=== PATIENT | male | born 1960 | race American Indian/Alaskan Native ===

== ENCOUNTER 2017-06-05 11:37 | Inpatient (IN) | payer MEDICAID ==
[2017-06-05 12:50] LABS: Basophils % (Auto) 0.3 % (0.0-1.8); Eosinophils % (Auto) 0.1 % (0.0-4.3); Hematocrit 36.1 % (35.5-45.6); Lymphocytes # (Auto) 1.1 K/mm3 (1.2-5.4); Lymphocytes % (Auto) 7.1 % (13.4-35.0); Mean Corpuscular HGB Conc 33 % (32-34); Mean Corpuscular Hemoglobin 29 pg (28-32); Mean Corpuscular Volume 88 fl (84-94); Monocytes # (Auto) 1.6 K/mm3 (0.0-0.8); Monocytes % (Auto) 10.4 % (0.0-7.3); Platelet Count 244 K/mm3 (140-440); Red Blood Count 4.13 M/mm3 (3.65-5.03); Red Cell Distribution Width 14.5 % (13.2-15.2)
[2017-06-05 13:07] LABS: Calcium 8.7 mg/dL (8.4-10.2)
--- NOTE | 2017-06-05 20:12 | Emergency Department Report ---
HPI - General Chief Complaint: Upper Respiratory Infection Time Seen by Provider: 06/05/17 20:05 - HPI HPI: This is a 56-year-old demented male presents to the emergency department from the PCP office where he saw nurse practitioner David Kent and was sent to [facility] for the diagnosis of pneumonia. The patient says that he has been having a productive cough going on for about a week or so. He has generalized bodyaches as well as his right-sided rib or chest discomfort. Patient presents with a low-grade fever here but otherwise denies any recent fever. He has a past medical history of diabetes, hypertension and hepatitis C. He did not take anything and was not given anything for his symptoms from presentation. No recent travel or sick contacts. ED Past Medical Hx - Past Medical History Previous Medical History?: Yes Hx Hypertension: Yes Hx Heart Attack/AMI: No Hx Congestive Heart Failure: No Hx Diabetes: Yes Hx Deep Vein Thrombosis: No Hx Pulmonary Embolism: No Hx Liver Disease: No Hx Renal Disease: No Hx Sickle Cell Disease: No Hx Arthritis: No Hx Seizures: No Hx Kidney Stones: No Hx Asthma: Yes Hx COPD: No Hx Tuberculosis: No Hx Dementia: No Hx HIV: No Additional medical history: Hep C. Anal condyloma - Surgical History Past Surgical History?: No Hx Coronary Stent: No Hx Open Heart Surgery: No Hx Pacemaker: No Hx Internal Defibrillator: No Hx Cholecystectomy: No Hx Appendectomy: No Hx Breast Surgery: No - Social History Smoking Status: Former Smoker Substance Use Type: Prescribed - Medications Home Medications: Home Medications Medication Instructions Recorded Confirmed Last Taken Type Albuterol Sulfate [Ventolin HFA] 2 puff IH Q4H PRN 10/16/15 11/03/15 Unknown History Gabapentin [Neurontin] 300 mg PO BID 10/16/15 11/03/15 Unknown History Aspirin [Aspirin BABY CHEW TAB] 81 mg PO QDAY #30 tab.chew 11/22/15 Unknown Rx AtorvaSTATin [Lipitor] 10 mg PO QHS #30 tablet 11/22/15 Unknown Rx Carvedilol [Coreg] 6.25 mg PO BID #60 tablet 11/22/15 Unknown Rx Famotidine [Pepcid] 20 mg PO BID #60 tablet 11/22/15 Unknown Rx Folic Acid [Folvite] 1 mg PO QDAY #30 tablet 11/22/15 Unknown Rx Multivitamin Tab [Multiple Vitamin 1 each PO QDAY #30 tablet 11/22/15 Unknown Rx TAB (Theragran)] Thiamine [Vitamin B-1] 100 mg PO QDAY #30 tablet 11/22/15 Unknown Rx ED Review of Systems ROS: Stated complaint: PNEUMONIA Other details as noted in HPI Constitutional: fever. denies: weakness Eyes: denies: eye pain, eye discharge, vision change ENT: denies: ear pain, throat pain Respiratory: cough. denies: wheezing Cardiovascular: chest pain. denies: palpitations Gastrointestinal: denies: abdominal pain, nausea, diarrhea Genitourinary: denies: urgency, dysuria Musculoskeletal: myalgia. denies: joint swelling Skin: denies: rash, lesions Neurological: denies: headache, weakness, paresthesias Physical Exam - Physical Exam Vital Signs: Vital Signs 06/05/17 11:41 Temperature 99.7 F H Pulse Rate 111 H Respiratory 22 Rate Blood Pressure 142/83 O2 Sat by Pulse 97 Oximetry Physical Exam: GENERAL: The patient is well-developed well-nourished. HENT: Normocephalic. Atraumatic. Patient has moist mucous membranes. EYES: Extraocular motions are intact. Pupils equal reactive to light bilaterally. NECK: Supple. Trachea is midline. CHEST/LUNGS: Coarse breath sounds on the right. There is some mild rhonchi heard. Mild tachypnea but no accessory muscle use. There is no respiratory distress noted. HEART/CARDIOVASCULAR: Regular. There is mild tachycardia. There is no murmur. ABDOMEN: Abdomen is soft, nontender. Patient has normal bowel sounds. There is no abdominal distention. SKIN: Skin is warm and dry. NEURO: The patient is awake, alert. The patient is cooperative. The patient has no focal neurologic deficits. The patient has normal speech. MUSCULOSKELETAL: There is no tenderness or deformity. There is no evidence of acute injury. ED Course Vital Signs 06/05/17 11:41 Temperature 99.7 F H Pulse Rate 111 H Respiratory 22 Rate Blood Pressure 142/83 O2 Sat by Pulse 97 Oximetry ED Medical Decision Making - Lab Data Result diagrams: 06/05/17 12:33 06/05/17 12:33 - EKG Data -: EKG Interpreted by Ak EKG shows normal: sinus rhythm, axis, intervals, QRS complexes, ST-T waves Rate: tachycardia (109 bpm) - EKG Data When compared to previous EKG there are: previous EKG unavailable Interpretation: normal EKG (sinus tach at 109 bpm) - Radiology Data Radiology results: report reviewed, image reviewed interpreted by me: Chest x-ray shows a large area of opacification towards the right lung. No pneumothorax. No significant cardiomegaly. PROCEDURE: CT ANGIO CHEST TECHNIQUE: Computerized tomographic angiography of the chest was performed after the IV injection of iodinated nonionic contrast including image processing. The image data was postprocessed using 2-dimensional multiplanar reformatted (MPR) and 3-dimensional (MIP and/or volume rendered) techniques. HISTORY: cp, elevated dimer COMPARISON: No prior studies are available for comparison. FINDINGS: Bilateral pulmonary arteries and their branches demonstrate normal opacification without filling defects. Aorta is of normal caliber without evidence of dissection. A large right pleural effusion is noted with complete collapse of right middle and lower lobes. Upper lobe demonstrates a few infiltrates. The right pleural effusion appears to contain multiple loculations. In the midportion. Left upper lobe demonstrates a irregular scarring in the midportion with the bullous/cavitary changes. Left lower lobe is unremarkable. 1.2 centimeter lymph node is noted in the sub-carinal region. IMPRESSION: No evidence of pulmonary embolism. Large loculated right pleural effusion. Small infiltrates right upper lobe Mild degree subcarinal lymphadenopathy. Irregular scarring with the cavitary/bullous changes left upper lobe. Transcribed By: [facility] Dictated By: MELVIN JUAREZ Electronically Authenticated By: MELVIN JUAREZ Signed Date/Time: 06/05/171908 - Medical Decision Making Patient was present by his primary care office for suspected right-sided pneumonia. However the patient had a CT angiography, secondary to an elevated d -dimer, but shows a right sided large pleural effusion. There is also some right upper lobe infiltrate and some abnormal left upper lobe scarring and/or bulla. Patient was started on antibiotics. Labs do show a leukocytosis of about 15,000. First troponin elevated at 0.041. EKG did not show ST elevation ME. He'll be admitted to hospital for further evaluation and treatment and has been accepted for admission by the hospitalist, Dr. Cadena. - Differential Diagnosis pneumonia, CHF, ME, PE, URI Critical Care Time: No Critical care attestation.: If time is entered above; I have spent that time in minutes in the direct care of this critically ill patient, excluding procedure time. ED Disposition Clinical Impression: Pleural effusion on right, Elevated troponin Pneumonia Qualifiers: Pneumonia type: due to unspecified organism Laterality: right Lung location: unspecified part of lung Qualified Code(s): J18.9 - Pneumonia, unspecified organism Disposition: OP ADMIT IP TO THIS HOSP Is pt being admited?: Yes Condition: Fair Instructions: Bacterial Pneumonia (ED) Referrals: PRIMARY CARE, [Primary Care Provider] - 3-5 Days Time of Disposition: 00:34
[2017-06-05 21:02] LABS: Chol/HDL Ratio 2.23 %
[2017-06-05] MEDS ORDERED: BABY ASPIRIN PO ONE (21:11)
[2017-06-05 21:28] LABS: INR 1.34 (0.87-1.13)
--- NOTE | 2017-06-05 21:33 | XRay Report ---
FINAL REPORT PROCEDURE: XR CHEST ROUTINE 2V TECHNIQUE: PA and lateral chest radiographs were obtained. CPT 62940 HISTORY: cough, rib pain COMPARISON: 10/16/2015 FINDINGS: Heart: Normal. Mediastinum/Vessels: Normal. Lungs/Pleural space: Moderate to large right pleural effusion is noted obscuring the underlying right lung. Left lung and left pleural space are clear.. Bony thorax: No acute osseous abnormality. Other: IMPRESSION: Moderate to large right pleural effusion..
[2017-06-05] MEDS ORDERED: NACL 0.9% 250ML 250 ML IV ONE (21:48)
--- NOTE | 2017-06-05 23:12 | Cat Scan Report ---
FINAL REPORT PROCEDURE: CT ANGIO CHEST TECHNIQUE: Computerized tomographic angiography of the chest was performed after the IV injection of iodinated nonionic contrast including image processing. The image data was postprocessed using 2-dimensional multiplanar reformatted (MPR) and 3-dimensional (MIP and/or volume rendered) techniques. HISTORY: cp, elevated dimer COMPARISON: No prior studies are available for comparison. FINDINGS: Bilateral pulmonary arteries and their branches demonstrate normal opacification without filling defects. Aorta is of normal caliber without evidence of dissection. A large right pleural effusion is noted with complete collapse of right middle and lower lobes. Upper lobe demonstrates a few infiltrates. The right pleural effusion appears to contain multiple loculations. In the midportion. Left upper lobe demonstrates a irregular scarring in the midportion with the bullous/cavitary changes. Left lower lobe is unremarkable. 1.2 centimeter lymph node is noted in the sub-carinal region. IMPRESSION: No evidence of pulmonary embolism. Large loculated right pleural effusion. Small infiltrates right upper lobe Mild degree subcarinal lymphadenopathy. Irregular scarring with the cavitary/bullous changes left upper lobe.
[2017-06-05] MEDS ORDERED: LEVAQUIN 750MG/150ML 750 MG/150 ML BAG IV ONE (23:22)
--- NOTE | 2017-06-05 23:34 | History and Physical Report ---
History of Present Illness Date of examination: 06/05/17 History of present illness: 56-year-old man with a history of hepatitis C, hypertension, diabetes and dementia was brought to the emergency room for evaluation of right rib pain, fever, cough productive of green phlegm Review Of Systems: Constitutional: no weight loss Ears, eyes, nose, mouth and throat: no nasal congestion, no nasal discharge, no sinus pressure, blurry vision, diplopia Neck: No neck pain or rigidity. Cardiovascular: No chest pain, palpitations Respiratory: No shortness of breath Gastrointestinal: No abdominal pain, hematochezia Genitourinary : no dysuria, frequency , hematuria Musculoskeletal: no muscle ache Integumentary: no rash, no pruritis Neurological: no parathesias, focal weakness Endocrine: no cold or heat intolerance, no polyuria or polydipsia Hematologic/Lymphatic: no easy bruising, no easy bleeding, no gland swelling Allergic/Immunologic: no urticaria, no angioedema. PAST MEDICAL HISTORY:hepatitis C, hypertension, diabetes and dementia PAST SURGICAL HISTORY: None FAMILY HISTORY: hypertension SOCIAL HISTORY: Denies alcohol, tobacco, drug Medications and Allergies Allergies Allergy/AdvReac Type Severity Reaction Status Date / Time No Known Allergies Allergy Verified 02/11/14 04:07 Home Medications Medication Instructions Recorded Confirmed Last Taken Type Albuterol Sulfate [Ventolin HFA] 2 puff IH Q4H PRN 10/16/15 11/03/15 Unknown History Gabapentin [Neurontin] 300 mg PO BID 10/16/15 11/03/15 Unknown History Aspirin [Aspirin BABY CHEW TAB] 81 mg PO QDAY #30 tab.chew 11/22/15 Unknown Rx AtorvaSTATin [Lipitor] 10 mg PO QHS #30 tablet 11/22/15 Unknown Rx Carvedilol [Coreg] 6.25 mg PO BID #60 tablet 11/22/15 Unknown Rx Famotidine [Pepcid] 20 mg PO BID #60 tablet 11/22/15 Unknown Rx Folic Acid [Folvite] 1 mg PO QDAY #30 tablet 11/22/15 Unknown Rx Multivitamin Tab [Multiple Vitamin 1 each PO QDAY #30 tablet 11/22/15 Unknown Rx TAB (Theragran)] Thiamine [Vitamin B-1] 100 mg PO QDAY #30 tablet 11/22/15 Unknown Rx Active Meds: Active Medications Levofloxacin/Dextrose (Levaquin 750mg/150ml) 750 mg in 150 mls @ 100 mls/hr IV ONCE ONE Stop: 06/06/17 00:51 Exam - Physical Exam Narrative exam: Gen. appearance: Patient lying in bed in no acute distress HEENT: Normocephalic/atraumatic, pupils equal round reactive to light, extra occular movement intact, no scleral icterus, no JVD or thyromegaly or nodule, neck is supple, mucous membrane moist, no erythema or exudate Heart: S1-S2, regular rate and rhythm Lungs: Decreased breath sound in the right base breathing comfortable Abdomen: Positive bowel sounds, nontender, nondistended, no organomegaly Extremities: No edema, cyanosis, clubbing Neuro:: Oriented 3 , cranial nerves II-12 intact, speech, motor intact Skin: No rash, nodules, warm dry - Constitutional Vitals: Temp Pulse Resp BP Pulse Ox 98.8 F 111 H 25 H 142/83 96 06/05/17 20:14 06/05/17 11:41 06/05/17 20:14 06/05/17 11:41 06/05/17 20:14 Results - Labs CBC & Chem 7: 06/05/17 12:33 06/05/17 12:33 Labs: Abnormal lab results 06/05/17 06/05/17 06/05/17 Range/Units 12:33 12:33 20:10 WBC 15.8 H (4.5-11.0) K/mm3 Lymph % (Auto) 7.1 L (13.4-35.0) % [place] % (Auto) 10.4 H (0.0-7.3) % Lymph # 1.1 L (1.2-5.4) K/mm3 [place] # 1.6 H (0.0-0.8) K/mm3 Seg Neutrophils % 82.1 H (40.0-70.0) % Seg Neutrophils # 12.9 H (1.8-7.7) K/mm3 PT (12.2-14.9) Sec. INR (0.87-1.13) D-Dimer (0-234) ng/mlDDU Sodium 134 L (137-145) mmol/L Carbon Dioxide 21 L (22-30) mmol/L BUN 21 H (9-20) mg/dL Glucose 133 H (75-100) mg/dL Troponin T 0.041 H (0.00-0.029) ng/mL LDL Cholesterol Direct 42 L (50-130) mg/dL 06/05/17 Range/Units 20:58 WBC (4.5-11.0) K/mm3 Lymph % (Auto) (13.4-35.0) % [place] % (Auto) (0.0-7.3) % Lymph # (1.2-5.4) K/mm3 [place] # (0.0-0.8) K/mm3 Seg Neutrophils % (40.0-70.0) % Seg Neutrophils # (1.8-7.7) K/mm3 PT 17.3 H (12.2-14.9) Sec. INR 1.34 H (0.87-1.13) D-Dimer 2377.87 H (0-234) ng/mlDDU Sodium (137-145) mmol/L Carbon Dioxide (22-30) mmol/L BUN (9-20) mg/dL Glucose (75-100) mg/dL Troponin T (0.00-0.029) ng/mL LDL Cholesterol Direct (50-130) mg/dL - Imaging and Cardiology EKG: image reviewed Chest x-ray: image reviewed CT scan - chest: report reviewed Assessment and Plan Assessment Sepsis Community-acquired pneumonia Large loculated pleural effusion Hypertension Diabetes Dementia Plan Admit to medicine Start IV antibiotics, consult pulmonary Follow cultures, check fingersticks initiate insulin sliding scale Continue appropriate outpatient medications DVT prophylaxis
[2017-06-06] MEDS ORDERED: MILK OF MAGNESIA PO PRN (01:31)
[2017-06-06] MEDS ORDERED: DULCOLAX PR PRN (01:31)
[2017-06-06] MEDS ORDERED: ZOFRAN IV PRN (01:31)
[2017-06-06] MEDS ORDERED: PROVENTIL IH PRN (01:31)
[2017-06-06] MEDS ORDERED: D50W (25GM) Syringe IV PRN (01:45)
[2017-06-06 04:43] LABS: Creatine Kinase MB 1.9 ng/mL (0.0-4.0)
[2017-06-06] MEDS: NOVOLOG SUB-Q SCH ×3 (08:00→22:45)
--- NOTE | 2017-06-06 09:06 | Progress Note ---
Assessment and Plan Assessment and plan: 56-year-old man with a history of hepatitis C, hypertension, diabetes and dementia was brought to the emergency room for evaluation of right rib pain, fever, cough productive of green phlegm Sepsis pneumonia ?aspiration Large loculated pleural effusion Chronically elevated Troponin Hypertension Diabetes Dementia Plan Start IV antibiotics, consult pulmonary Consult cardiology, ID IR to see if thoracentesis is possible, FLUID Studies. Follow cultures, check fingersticks initiate insulin sliding scale Continue appropriate outpatient medications DVT prophylaxis History Interval history: Patient seen and examined, in no acute distress at this time. Hospitalist Physical - Physical exam Narrative exam: VITAL SIGNS: Reviewed. GENERAL: The patient appeared well nourished and normally developed. Vital signs as documented. HEAD: No signs of head trauma. EYES: Pupils are equal. Extraocular motions intact. EARS: Hearing grossly intact. MOUTH: Oropharynx is normal. NECK: No adenopathy, no JVD. CHEST: Chest with Diminshed breath sounds bilaterally. No wheezes, rales, or rhonchi. CARDIAC: Regular rate and rhythm. S1 and S2, without murmurs, gallops, or rubs. VASCULAR: No Edema. Peripheral pulses normal and equal in all extremities. ABDOMEN: Soft, without detectable tenderness. No sign of distention. No rebound or guarding, and no masses palpated. Bowel Sounds normal. MUSCULOSKELETAL: Good range of motion of all major joints. Extremities without clubbing, cyanosis or edema. NEUROLOGIC EXAM: Alert and oriented x 3. No focal sensory or strength deficits. Speech normal. Follows commands. PSYCHIATRIC: Mood normal. SKIN: No rash or lesions. - Constitutional Vitals: Temp Pulse Resp BP Pulse Ox 98.5 F 106 H 18 154/78 96 06/06/17 08:29 06/06/17 08:29 06/06/17 08:29 06/06/17 08:29 06/06/17 08:29 Results - Labs CBC & Chem 7: 06/06/17 09:20 06/06/17 09:20 Labs: Laboratory Last Values WBC 15.8 K/mm3 (4.5-11.0) H 06/05/17 12:33 RBC 4.13 M/mm3 (3.65-5.03) 06/05/17 12:33 Hgb 12.0 gm/dl (11.8-15.2) 06/05/17 12:33 Hct 36.1 % (35.5-45.6) 06/05/17 12:33 MCV 88 fl (84-94) 06/05/17 12:33 MCH 29 pg (28-32) 06/05/17 12:33 MCHC 33 % (32-34) 06/05/17 12:33 RDW 14.5 % (13.2-15.2) 06/05/17 12:33 Plt Count 244 K/mm3 (140-440) 06/05/17 12:33 Lymph % (Auto) 7.1 % (13.4-35.0) L 06/05/17 12:33 [place] % (Auto) 10.4 % (0.0-7.3) H 06/05/17 12:33 Eos % (Auto) 0.1 % (0.0-4.3) 06/05/17 12:33 Baso % (Auto) 0.3 % (0.0-1.8) 06/05/17 12:33 Lymph # 1.1 K/mm3 (1.2-5.4) L 06/05/17 12:33 [place] # 1.6 K/mm3 (0.0-0.8) H 06/05/17 12:33 Eos # 0.0 K/mm3 (0.0-0.4) 06/05/17 12:33 Baso # 0.0 K/mm3 (0.0-0.1) 06/05/17 12:33 Seg Neutrophils % 82.1 % (40.0-70.0) H 06/05/17 12:33 Seg Neutrophils # 12.9 K/mm3 (1.8-7.7) H 06/05/17 12:33 PT 17.3 Sec. (12.2-14.9) H 06/05/17 20:58 INR 1.34 (0.87-1.13) H 06/05/17 20:58 APTT 35.0 Sec. (24.2-36.6) 06/05/17 20:58 D-Dimer 2377.87 ng/mlDDU (0-234) H 06/05/17 20:58 Sodium 134 mmol/L (137-145) L 06/05/17 12:33 Potassium 4.6 mmol/L (3.6-5.0) 06/05/17 12:33 Chloride 99.2 mmol/L (98-107) 06/05/17 12:33 Carbon Dioxide 21 mmol/L (22-30) L 06/05/17 12:33 Anion Gap 18 mmol/L 06/05/17 12:33 BUN 21 mg/dL (9-20) H 06/05/17 12:33 Creatinine 1.5 mg/dL (0.8-1.5) 06/05/17 12:33 Estimated GFR 59 ml/min 06/05/17 12:33 BUN/Creatinine Ratio 14 % 06/05/17 12:33 Glucose 133 mg/dL (75-100) H 06/05/17 12:33 POC Glucose 127 (70-105) H 06/06/17 02:23 Calcium 8.7 mg/dL (8.4-10.2) 06/05/17 12:33 Total Creatine Kinase 166 units/L (55-170) 06/06/17 03:19 CK-MB (CK-2) 1.9 ng/mL (0.0-4.0) 06/06/17 03:19 CK-MB (CK-2) Rel Index 1.1 (0-4) 06/06/17 03:19 Troponin T 0.031 ng/mL (0.00-0.029) H D 06/06/17 03:19 NT-Pro-B Natriuret Pep 464.0 pg/mL (0-900) 06/05/17 20:10 Triglycerides 80 mg/dL (2-149) 06/05/17 20:10 Cholesterol 105 mg/dL (50-199) 06/05/17 20:10 LDL Cholesterol Direct 42 mg/dL (50-130) L 06/05/17 20:10 HDL Cholesterol 47 mg/dL (40-59) 06/05/17 20:10 Cholesterol/HDL Ratio 2.23 % 06/05/17 20:10
[2017-06-06 09:39] LABS: Basophils % (Auto) 0.2 % (0.0-1.8); Hematocrit 32.6 % (35.5-45.6); Hemoglobin 10.6 gm/dl (11.8-15.2); Lymphocytes # (Auto) 0.8 K/mm3 (1.2-5.4); Lymphocytes % (Auto) 5.2 % (13.4-35.0); Mean Corpuscular HGB Conc 33 % (32-34); Mean Corpuscular Hemoglobin 28 pg (28-32); Mean Corpuscular Volume 86 fl (84-94); Monocytes # (Auto) 1.5 K/mm3 (0.0-0.8); Monocytes % (Auto) 9.8 % (0.0-7.3); Platelet Count 215 K/mm3 (140-440); Red Blood Count 3.77 M/mm3 (3.65-5.03); Red Cell Distribution Width 14.4 % (13.2-15.2)
[2017-06-06 09:59] LABS: Creatine Kinase MB 2.5 ng/mL (0.0-4.0)
[2017-06-06 10:02] LABS: BUN/Creatinine Ratio 18; Blood Urea Nitrogen 22 mg/dL (9-20); Calcium 8.3 mg/dL (8.4-10.2); Hemolysis Index 11
[2017-06-06] MEDS: NEURONTIN PO SCH ×2 (10:26→22:41)
[2017-06-06] MEDS: LOVENOX SUB-Q SCH ×2 (10:26→10:30)
[2017-06-06] MEDS: VITAMIN B-1 PO SCH (10:26)
[2017-06-06] MEDS: THERAGRAN Tab PO SCH (10:26)
[2017-06-06] MEDS: PEPCID PO SCH ×2 (10:26→22:41)
[2017-06-06] MEDS: FOLVITE PO SCH (10:26)
[2017-06-06] MEDS: COREG PO SCH ×2 (10:27→22:41)
[2017-06-06] MEDS: LEVAQUIN 750MG/150ML 750 MG/150 ML BAG IV SCH (10:28)
--- NOTE | 2017-06-06 12:07 | Consultation ---
History of Present Illness Consult date: 06/06/17 Consult reason: congestive heart failure History of present illness: This is a 56yr old male who was sent to this hospital from his primary care office for suspected pneumonia. A cardiac consultation was requested for CHF evaluation. Patient denies a prior cardiac history. Prior cardiac workup demonstrates normal myocardial thallium stress test and a normal left ventricular systolic function, EF 60-65%. A chest x-ray reports a large right pleural effusion. Chest CT reports a right pleural effusion, small right upper lobe infiltrates but no evidence of pulmonary embolus. Patient reports shortness of breath and coughs ongoing for several weeks. He denies lower extremity edema. Noted WBC of 15.8 and mildly febrile on initial workup in the emergency department. 12 lead ECG is a sinus tachycardia, no acute ischemic changes. Medications and Allergies Allergies Allergy/AdvReac Type Severity Reaction Status Date / Time No Known Allergies Allergy Verified 02/11/14 04:07 Home Medications Medication Instructions Recorded Confirmed Last Taken Type Albuterol Sulfate [Ventolin HFA] 2 puff IH Q4H PRN 10/16/15 11/03/15 Unknown History Gabapentin [Neurontin] 300 mg PO BID 10/16/15 11/03/15 Unknown History Aspirin [Aspirin BABY CHEW TAB] 81 mg PO QDAY #30 tab.chew 11/22/15 Unknown Rx AtorvaSTATin [Lipitor] 10 mg PO QHS #30 tablet 11/22/15 Unknown Rx Carvedilol [Coreg] 6.25 mg PO BID #60 tablet 11/22/15 Unknown Rx Famotidine [Pepcid] 20 mg PO BID #60 tablet 11/22/15 Unknown Rx Folic Acid [Folvite] 1 mg PO QDAY #30 tablet 11/22/15 Unknown Rx Multivitamin Tab [Multiple Vitamin 1 each PO QDAY #30 tablet 11/22/15 Unknown Rx TAB (Theragran)] Thiamine [Vitamin B-1] 100 mg PO QDAY #30 tablet 11/22/15 Unknown Rx Active Meds: Active Medications Acetaminophen (Tylenol) 650 mg PO Q4H PRN PRN Reason: Pain MILD(1-3)/Fever >100.5/SOLIMAN Albuterol (Proventil) 2.5 mg IH Q3HRT PRN PRN Reason: Shortness Of Breath Atorvastatin Calcium (Lipitor) 10 mg PO QHS BRUNILDA Bisacodyl (Dulcolax) 10 mg NC QDAY PRN PRN Reason: Constipation unrelieved by MOM Carvedilol (Coreg) 6.25 mg PO BID [facility] Last Admin: 06/06/17 10:27 Dose: 6.25 mg Dextrose (D50w (25gm) Syringe) 50 ml IV PRN PRN PRN Reason: Hypoglycemia Enoxaparin Sodium (Lovenox) 40 mg SUB-Q QDAY [facility] Last Admin: 06/06/17 10:30 Dose: Not Given Famotidine (Pepcid) 20 mg PO BID [facility] Last Admin: 06/06/17 10:26 Dose: 20 mg Folic Acid (Folvite) 1 mg PO QDAY [facility] Last Admin: 06/06/17 10:26 Dose: 1 mg Gabapentin (Neurontin) 300 mg PO BID [facility] Last Admin: 06/06/17 10:26 Dose: 300 mg Levofloxacin/Dextrose (Levaquin 750mg/150ml) 750 mg in 150 mls @ 100 mls/hr IV DAILY [facility] Last Admin: 06/06/17 10:28 Dose: 100 mls/hr Insulin Aspart (Novolog) 0 units SUB-Q ACHS [facility] PRN Reason: Protocol Last Admin: 06/06/17 08:00 Dose: 2 units Magnesium Hydroxide (Milk Of Magnesia) 30 ml PO Q4H PRN PRN Reason: Constipation Multivitamins (Theragran Tab) 1 each PO QDAY [facility] Last Admin: 06/06/17 10:26 Dose: 1 each Ondansetron HCl (Zofran) 4 mg IV Q8H PRN PRN Reason: N/V unrelieved by Reglan Thiamine HCl (Vitamin B-1) 100 mg PO QDAY [facility] Last Admin: 06/06/17 10:26 Dose: 100 mg Physical Examination Vital Signs Temp Pulse Resp BP Pulse Ox 99.7 F H 111 H 22 142/83 97 06/05/17 11:41 06/05/17 11:41 06/05/17 11:41 06/05/17 11:41 06/05/17 11:41 General appearance: no acute distress HEENT: Positive: PERRL Neck: Positive: trachea midline Cardiac: Positive: Reg Rate and Rhythm Lungs: Positive: Decreased Breath Sounds Neuro: Positive: Grossly Intact Extremities: Absent: edema Results 06/06/17 09:20 06/06/17 09:20 Cardiac Enzymes 06/06/17 06/06/17 Range/Units 03:19 07:48 CK-MB (CK-2) 1.9 2.5 (0.0-4.0) ng/mL Coagulation 06/05/17 Range/Units 20:58 PT 17.3 H (12.2-14.9) Sec. INR 1.34 H (0.87-1.13) APTT 35.0 (24.2-36.6) Sec. Lipids 06/05/17 Range/Units 20:10 Triglycerides 80 (2-149) mg/dL Cholesterol 105 (50-199) mg/dL HDL Cholesterol 47 (40-59) mg/dL Cholesterol/HDL Ratio 2.23 % CBC 06/05/17 06/06/17 Range/Units 12:33 09:20 WBC 15.8 H 15.7 H (4.5-11.0) K/mm3 RBC 4.13 3.77 (3.65-5.03) M/mm3 Hgb 12.0 10.6 L (11.8-15.2) gm/dl Hct 36.1 32.6 L (35.5-45.6) % Plt Count 244 215 (140-440) K/mm3 Lymph # 1.1 L 0.8 L (1.2-5.4) K/mm3 [place] # 1.6 H 1.5 H (0.0-0.8) K/mm3 Eos # 0.0 0.0 (0.0-0.4) K/mm3 Baso # 0.0 0.0 (0.0-0.1) K/mm3 Comprehensive Metabolic Panel 06/05/17 06/06/17 Range/Units 12:33 09:20 Sodium 134 L 135 L (137-145) mmol/L Potassium 4.6 4.4 (3.6-5.0) mmol/L Chloride 99.2 101.3 (98-107) mmol/L Carbon Dioxide 21 L 19 L (22-30) mmol/L BUN 21 H 22 H (9-20) mg/dL Creatinine 1.5 1.2 (0.8-1.5) mg/dL Glucose 133 H 161 H (75-100) mg/dL Calcium 8.7 8.3 L (8.4-10.2) mg/dL Assessment and Plan Right pleural effusion Hypertension Diabetes EF 60-65% on echo 11/2015. Normal MPI 07/2013
--- NOTE | 2017-06-06 13:44 | Consultation ---
History of Present Illness Consult date: 06/06/17 Requesting physician: CHAUNCEY GALVAN Reason for consult: pleural effusion History of present illness: 56 y/o male admitted with chest pain and shortness of breath. Per patient, has been short of breath for the last [address] Kent and was treated with abx and some other medications he cannot remember. Patient states that shortness of breath, progressively has gotten worse. Had CXR that showed large right sided effusion. CTA was negative for PE but showed same large effusion with some atelectasis. rads read as pneumonia. Started on abx therapy and we were consulted. Former smoker of about 19 years. No weight loss, no hemoptysis. No night sweats. Past History Past Medical History: GERD, hyperlipidemia, other (neuropathy) Medications and Allergies Allergies Allergy/AdvReac Type Severity Reaction Status Date / Time No Known Allergies Allergy Verified 02/11/14 04:07 Home Medications Medication Instructions Recorded Confirmed Last Taken Type Albuterol Sulfate [Ventolin HFA] 2 puff IH Q4H PRN 10/16/15 11/03/15 Unknown History Gabapentin [Neurontin] 300 mg PO BID 10/16/15 11/03/15 Unknown History Aspirin [Aspirin BABY CHEW TAB] 81 mg PO QDAY #30 tab.chew 11/22/15 Unknown Rx AtorvaSTATin [Lipitor] 10 mg PO QHS #30 tablet 11/22/15 Unknown Rx Carvedilol [Coreg] 6.25 mg PO BID #60 tablet 11/22/15 Unknown Rx Famotidine [Pepcid] 20 mg PO BID #60 tablet 11/22/15 Unknown Rx Folic Acid [Folvite] 1 mg PO QDAY #30 tablet 11/22/15 Unknown Rx Multivitamin Tab [Multiple Vitamin 1 each PO QDAY #30 tablet 11/22/15 Unknown Rx TAB (Theragran)] Thiamine [Vitamin B-1] 100 mg PO QDAY #30 tablet 11/22/15 Unknown Rx Active Meds: Active Medications Acetaminophen (Tylenol) 650 mg PO Q4H PRN PRN Reason: Pain MILD(1-3)/Fever >100.5/SOLIMAN Albuterol (Proventil) 2.5 mg IH Q3HRT PRN PRN Reason: Shortness Of Breath Atorvastatin Calcium (Lipitor) 10 mg PO QHS BRUNILDA Bisacodyl (Dulcolax) 10 mg PA QDAY PRN PRN Reason: Constipation unrelieved by MOM Carvedilol (Coreg) 6.25 mg PO BID COUNTS INCLUDE 234 BEDS AT THE [facility] Last Admin: 06/06/17 10:27 Dose: 6.25 mg Dextrose (D50w (25gm) Syringe) 50 ml IV PRN PRN PRN Reason: Hypoglycemia Enoxaparin Sodium (Lovenox) 40 mg SUB-Q QDAY COUNTS INCLUDE 234 BEDS AT THE [facility] Last Admin: 06/06/17 10:30 Dose: Not Given Famotidine (Pepcid) 20 mg PO BID COUNTS INCLUDE 234 BEDS AT THE [facility] Last Admin: 06/06/17 10:26 Dose: 20 mg Folic Acid (Folvite) 1 mg PO QDAY COUNTS INCLUDE 234 BEDS AT THE [facility] Last Admin: 06/06/17 10:26 Dose: 1 mg Gabapentin (Neurontin) 300 mg PO BID COUNTS INCLUDE 234 BEDS AT THE [facility] Last Admin: 06/06/17 10:26 Dose: 300 mg Levofloxacin/Dextrose (Levaquin 750mg/150ml) 750 mg in 150 mls @ 100 mls/hr IV DAILY COUNTS INCLUDE 234 BEDS AT THE [facility] Last Admin: 06/06/17 10:28 Dose: 100 mls/hr Insulin Aspart (Novolog) 0 units SUB-Q ACHS COUNTS INCLUDE 234 BEDS AT THE [facility] PRN Reason: Protocol Last Admin: 06/06/17 08:00 Dose: 2 units Magnesium Hydroxide (Milk Of Magnesia) 30 ml PO Q4H PRN PRN Reason: Constipation Multivitamins (Theragran Tab) 1 each PO QDAY COUNTS INCLUDE 234 BEDS AT THE [facility] Last Admin: 06/06/17 10:26 Dose: 1 each Ondansetron HCl (Zofran) 4 mg IV Q8H PRN PRN Reason: N/V unrelieved by Janet Thiamine HCl (Vitamin B-1) 100 mg PO QDAY COUNTS INCLUDE 234 BEDS AT THE [facility] Last Admin: 06/06/17 10:26 Dose: 100 mg Review of Systems All systems: negative Physical Examination Vital signs: Vital Signs Temp Pulse Resp BP Pulse Ox 99.7 F H 111 H 22 142/83 97 06/05/17 11:41 06/05/17 11:41 06/05/17 11:41 06/05/17 11:41 06/05/17 11:41 General appearance: no acute distress, alert Eyes: non-icteric ENT: oropharynx moist Neck: supple Effort: normal Ascultation: Right: diminished breath sounds, egophony, Left: clear Percussion: Right: dull Tactile fremitus: Right: diminished Cardiovascular: regular rate and rhythm Gastrointestinal: normoactive bowel sounds, soft, non-tender Extremities: no edema Musculoskeletal: no deformities mood appropriate, affect normal Results - Laboratory Findings CBC and BMP: 06/06/17 09:20 06/06/17 09:20 PT/INR, D-dimer PT 17.3 Sec. (12.2-14.9) H 06/05/17 20:58 INR 1.34 (0.87-1.13) H 06/05/17 20:58 D-Dimer 2377.87 ng/mlDDU (0-234) H 06/05/17 20:58 Abnormal lab findings: Abnormal Labs 06/05/17 06/05/17 06/05/17 12:33 12:33 20:10 WBC 15.8 H Hgb Hct Lymph % (Auto) 7.1 L [place] % (Auto) 10.4 H Lymph # 1.1 L [place] # 1.6 H Seg Neutrophils % 82.1 H Seg Neutrophils # 12.9 H PT INR D-Dimer Sodium 134 L Carbon Dioxide 21 L BUN 21 H Glucose 133 H POC Glucose Calcium Total Creatine Kinase Troponin T 0.041 H LDL Cholesterol Direct 42 L 06/05/17 06/06/17 06/06/17 20:58 02:23 03:19 WBC Hgb Hct Lymph % (Auto) [place] % (Auto) Lymph # [place] # Seg Neutrophils % Seg Neutrophils # PT 17.3 H INR 1.34 H D-Dimer 2377.87 H Sodium Carbon Dioxide BUN Glucose POC Glucose 127 H Calcium Total Creatine Kinase Troponin T 0.031 H D LDL Cholesterol Direct 06/06/17 06/06/17 06/06/17 07:48 09:20 09:20 WBC 15.7 H Hgb 10.6 L Hct 32.6 L Lymph % (Auto) 5.2 L [place] % (Auto) 9.8 H Lymph # 0.8 L [place] # 1.5 H Seg Neutrophils % 84.8 H Seg Neutrophils # 13.3 H PT INR D-Dimer Sodium 135 L Carbon Dioxide 19 L BUN 22 H Glucose 161 H POC Glucose Calcium 8.3 L Total Creatine Kinase 186 H Troponin T LDL Cholesterol Direct - Diagnostic Findings Chest x-ray: image reviewed (images reviewed and assessed in HPI) CT scan - chest: image reviewed (images reviewed and assessed in HPI) Assessment and Plan 56 y/o male with large right sided pleural effusion and prior history of smoking. 1. Agree with thoracentesis 2. I ordered all the studies: glucose, LDH, total protein, cell count with diff, gram stain, culture, AFB and fungal along with cytology. 3. Will continue to follow.
[2017-06-06 14:34] LABS: Albumin 2.7 g/dL (3.9-5); Bilirubin,Direct 0.4 mg/dL (0-0.2)
--- NOTE | 2017-06-06 15:30 | Procedure Note ---
Date of procedure: 06/06/17 Pre-op diagnosis: rt. pleural effusion Post-op diagnosis: same Procedure: u/s guided thoracentesis Findings: straw colored fluid Anesthesia: local Surgeon: CHRIS MEZA Estimated blood loss: none Pathology: list (pleural fluid) Specimen disposition: to lab Condition: stable Disposition: floor
--- NOTE | 2017-06-06 16:23 | Consultation ---
History of Present Illness - Reason for Consult Consult date: 06/06/17 pneumonia Requesting physician: CHANUCEY ZIEGLER - History of Present Illness 56-year-old man with a history of hepatitis C, hypertension, diabetes and dementia was brought to the emergency room for evaluation of right rib pain, and productive cough. Initial temperature 99.7, HR 111,R 22, SPo2 100%, b/p 132/84, WBC 15.8, cr 1.5, Inr 1.36, Microbiology: Blood cultures: 06/05 ngtd Respiratory culture Current Antimicrobials: Levaquin 06/06 Previous Antimicrobials: Past History Past Medical History: GERD, hyperlipidemia, other (neuropathy) Medications and Allergies Allergies Allergy/AdvReac Type Severity Reaction Status Date / Time No Known Allergies Allergy Verified 02/11/14 04:07 Home Medications Medication Instructions Recorded Confirmed Last Taken Type Albuterol Sulfate [Ventolin HFA] 2 puff IH Q4H PRN 10/16/15 06/07/17 1 Day Ago History ~06/06/17 Gabapentin [Neurontin] 300 mg PO BID 10/16/15 06/07/17 1 Day Ago History ~06/06/17 Aspirin [Aspirin BABY CHEW TAB] 81 mg PO QDAY #30 tab.chew 11/22/15 06/07/17 1 Day Ago Rx ~06/06/17 AtorvaSTATin [Lipitor] 10 mg PO QHS #30 tablet 11/22/15 06/07/17 1 Day Ago Rx ~06/06/17 Carvedilol [Coreg] 6.25 mg PO BID #60 tablet 11/22/15 06/07/17 1 Day Ago Rx ~06/06/17 Famotidine [Pepcid] 20 mg PO BID #60 tablet 11/22/15 06/07/17 1 Day Ago Rx ~06/06/17 Active Meds: Active Medications Acetaminophen (Tylenol) 650 mg PO Q4H PRN PRN Reason: Pain MILD(1-3)/Fever >100.5/SOLIMAN Albuterol (Proventil) 2.5 mg IH Q3HRT PRN PRN Reason: Shortness Of Breath Atorvastatin Calcium (Lipitor) 10 mg PO QHS BRUNILDA Bisacodyl (Dulcolax) 10 mg ND QDAY PRN PRN Reason: Constipation unrelieved by MOM Carvedilol (Coreg) 6.25 mg PO BID BRUNILDA Last Admin: 06/06/17 10:27 Dose: 6.25 mg Dextrose (D50w (25gm) Syringe) 50 ml IV PRN PRN PRN Reason: Hypoglycemia Enoxaparin Sodium (Lovenox) 40 mg SUB-Q QDAY [facility] Last Admin: 06/06/17 10:30 Dose: Not Given Famotidine (Pepcid) 20 mg PO BID [facility] Last Admin: 06/06/17 10:26 Dose: 20 mg Folic Acid (Folvite) 1 mg PO QDAY [facility] Last Admin: 06/06/17 10:26 Dose: 1 mg Gabapentin (Neurontin) 300 mg PO BID [facility] Last Admin: 06/06/17 10:26 Dose: 300 mg Levofloxacin/Dextrose (Levaquin 750mg/150ml) 750 mg in 150 mls @ 100 mls/hr IV DAILY [facility] Last Admin: 06/06/17 10:28 Dose: 100 mls/hr Insulin Aspart (Novolog) 0 units SUB-Q ACHS [facility] PRN Reason: Protocol Last Admin: 06/06/17 08:00 Dose: 2 units Magnesium Hydroxide (Milk Of Magnesia) 30 ml PO Q4H PRN PRN Reason: Constipation Multivitamins (Theragran Tab) 1 each PO QDAY [facility] Last Admin: 06/06/17 10:26 Dose: 1 each Ondansetron HCl (Zofran) 4 mg IV Q8H PRN PRN Reason: N/V unrelieved by Reglan Thiamine HCl (Vitamin B-1) 100 mg PO QDAY [facility] Last Admin: 06/06/17 10:26 Dose: 100 mg Physical Examination - Physical Exam Narrative exam: General appearance: Alert in NAD, conversant Eyes: anicteric sclerae, moist conjunctivae; no lid-lag; PERRLA HENT: Atraumatic; oropharynx c+shallow ulcers with mild thrush Lungs: karoline crackles, occasional SOB CV: RRR, no murmurs Abdomen: Soft, non-tender; +BS x 4 Extremities: No peripheral edema or extremity lymphadenopathy Skin: Normal temperature, turgor and texture; no rash, ulcers or subcutaneous nodules Psych: Appropriate affect, calm and cooperative Neuro: alert and oriented x 3. Moving all extermities Lines: No CVL / PICC - Constitutional Vitals: Vital Signs Temp Pulse Resp BP Pulse Ox 98.8 F 108 H 18 174/99 94 06/06/17 16:06 06/06/17 16:06 06/06/17 16:06 06/06/17 16:06 06/06/17 16:06 Temperature -Last 24 Hours Temperature 98.8 F Temperature 98.9 F Temperature 98.5 F Temperature 97.6 F Temperature 97.6 F Temperature 98.4 F Temperature 98.8 F Results - Labs CBC & Chem 7: 06/07/17 05:42 06/07/17 05:42 Labs: Abnormal lab results 06/05/17 06/05/17 06/06/17 Range/Units 20:10 20:58 02:23 WBC (4.5-11.0) K/mm3 Hgb (11.8-15.2) gm/dl Hct (35.5-45.6) % Lymph % (Auto) (13.4-35.0) % [place] % (Auto) (0.0-7.3) % Lymph # (1.2-5.4) K/mm3 [place] # (0.0-0.8) K/mm3 Seg Neutrophils % (40.0-70.0) % Seg Neutrophils # (1.8-7.7) K/mm3 PT 17.3 H (12.2-14.9) Sec. INR 1.34 H (0.87-1.13) D-Dimer 2377.87 H (0-234) ng/mlDDU Sodium (137-145) mmol/L Carbon Dioxide (22-30) mmol/L BUN (9-20) mg/dL Glucose (75-100) mg/dL POC Glucose 127 H (70-105) Calcium (8.4-10.2) mg/dL Direct Bilirubin (0-0.2) mg/dL Total Creatine Kinase (55-170) units/L Troponin T 0.041 H (0.00-0.029) ng/mL Albumin (3.9-5) g/dL LDL Cholesterol Direct 42 L (50-130) mg/dL 06/06/17 06/06/17 06/06/17 Range/Units 03:19 07:48 09:20 WBC 15.7 H (4.5-11.0) K/mm3 Hgb 10.6 L (11.8-15.2) gm/dl Hct 32.6 L (35.5-45.6) % Lymph % (Auto) 5.2 L (13.4-35.0) % [place] % (Auto) 9.8 H (0.0-7.3) % Lymph # 0.8 L (1.2-5.4) K/mm3 [place] # 1.5 H (0.0-0.8) K/mm3 Seg Neutrophils % 84.8 H (40.0-70.0) % Seg Neutrophils # 13.3 H (1.8-7.7) K/mm3 PT (12.2-14.9) Sec. INR (0.87-1.13) D-Dimer (0-234) ng/mlDDU Sodium (137-145) mmol/L Carbon Dioxide (22-30) mmol/L BUN (9-20) mg/dL Glucose (75-100) mg/dL POC Glucose (70-105) Calcium (8.4-10.2) mg/dL Direct Bilirubin (0-0.2) mg/dL Total Creatine Kinase 186 H (55-170) units/L Troponin T 0.031 H D (0.00-0.029) ng/mL Albumin (3.9-5) g/dL LDL Cholesterol Direct (50-130) mg/dL 06/06/17 06/06/17 Range/Units 09:20 09:20 WBC (4.5-11.0) K/mm3 Hgb (11.8-15.2) gm/dl Hct (35.5-45.6) % Lymph % (Auto) (13.4-35.0) % [place] % (Auto) (0.0-7.3) % Lymph # (1.2-5.4) K/mm3 [place] # (0.0-0.8) K/mm3 Seg Neutrophils % (40.0-70.0) % Seg Neutrophils # (1.8-7.7) K/mm3 PT (12.2-14.9) Sec. INR (0.87-1.13) D-Dimer (0-234) ng/mlDDU Sodium 135 L (137-145) mmol/L Carbon Dioxide 19 L (22-30) mmol/L BUN 22 H (9-20) mg/dL Glucose 161 H (75-100) mg/dL POC Glucose (70-105) Calcium 8.3 L (8.4-10.2) mg/dL Direct Bilirubin 0.4 H (0-0.2) mg/dL Total Creatine Kinase (55-170) units/L Troponin T (0.00-0.029) ng/mL Albumin 2.7 L (3.9-5) g/dL LDL Cholesterol Direct (50-130) mg/dL Assessment and Plan Assessment: 1) Sepsis: Present on admission, manifested by tachycardia, and leucocytosis. Etiology ?pneumonia vs malignancy vs TB 2) Pneumonia; -Chest CTA 06/05 showed small infiltrates to right upper lobe 3) Hypertension 4) Diabetes 5) Dementia Plan: -follow-up blood cultures -obtain C-reactive protein (CRP) -check influenza antigen PCR in nasopharinx -check AFB blood cultures -continue levaquin -add tamiflu -droplet precaution Thank you Dr ziegler for your consultation, will follow up with you. Emilee Erazo MD Infectious Diseases Specialist [facility] M [phone] O [phone]
[2017-06-06 18:16] LABS: Total Cells Counted 100 /mm3
--- NOTE | 2017-06-06 18:23 | XRay Report ---
FINAL REPORT EXAM: XR CHEST 1V AP HISTORY: thoracentesis TECHNIQUE: Frontal chest x-ray single-view was performed Comparison: 06/05/2017, CTA chest 06/05/2017 showing large right pleural effusion with subjacent consolidation. In the superior half of the hemithorax, the effusion was located posteriorly only. FINDINGS: Single view of the chest demonstrates persistent elevated right hemidiaphragm. The volume of thoracentesis is unknown. There persisting consolidation with ill-defined opacity projecting the right suprahilar region. Right hemidiaphragm remains elevated. Left lung is clear. No pneumothorax is identified. Heart size is within normal limits. There is fullness of the right suprahilar region. CT yesterday showed endobronchial disease in the bronchus intermedius, potentially mucous plugging. IMPRESSION: Persistent abnormal aeration right hemithorax without significant change in the volume of fluid/consolidation. Volume of thoracentesis is unknown. No pneumothorax. Left lung is clear. Please see above for details.
[2017-06-07 06:41] LABS: Basophils % (Auto) 0.4 % (0.0-1.8); Eosinophils % (Auto) 0.2 % (0.0-4.3); Hematocrit 30.4 % (35.5-45.6); Hemoglobin 9.9 gm/dl (11.8-15.2); Lymphocytes # (Auto) 1.4 K/mm3 (1.2-5.4); Mean Corpuscular HGB Conc 33 % (32-34); Mean Corpuscular Hemoglobin 29 pg (28-32); Mean Corpuscular Volume 88 fl (84-94); Monocytes # (Auto) 1.7 K/mm3 (0.0-0.8); Monocytes % (Auto) 12.8 % (0.0-7.3); Platelet Count 205 K/mm3 (140-440); Red Blood Count 3.45 M/mm3 (3.65-5.03); Red Cell Distribution Width 14.6 % (13.2-15.2)
[2017-06-07 06:47] LABS: Calcium 8.3 mg/dL (8.4-10.2)
[2017-06-07] MEDS: NOVOLOG SUB-Q SCH ×5 (08:24→22:35)
[2017-06-07] MEDS: PEPCID PO SCH ×2 (09:48→22:35)
[2017-06-07] MEDS: COREG PO SCH ×2 (09:48→22:34)
[2017-06-07] MEDS: THERAGRAN Tab PO SCH (09:49)
[2017-06-07] MEDS: FOLVITE PO SCH (09:49)
[2017-06-07] MEDS: NEURONTIN PO SCH ×2 (09:49→22:35)
[2017-06-07] MEDS: LEVAQUIN 750MG/150ML 750 MG/150 ML BAG IV SCH (10:22)
[2017-06-07] MEDS: LOVENOX SUB-Q SCH (10:22)
[2017-06-07] MEDS: VITAMIN B-1 PO SCH (10:47)
--- NOTE | 2017-06-07 11:27 | Progress Note ---
Assessment and Plan Right pleural effusion s/p thoracentesis Partial right hemithorax Hypertension Diabetes EF 60-65% on echo 11/2015. Normal MPI 07/2013 Recommend: Echocardiogram for left ventricular function assessment. Subjective Date of service: 06/07/17 Interval history: No distress noted. No reported cardiac events. Objective Vital Signs Temp Pulse Resp BP BP Pulse Ox 06/07/17 07:50 100.0 F H 82 16 123/66 97 06/07/17 02:00 101 H 06/06/17 22:41 102 H 135/73 06/06/17 21:11 20 06/06/17 20:13 97.5 F L 102 H 18 135/73 06/06/17 20:10 97.5 F L 102 H 19 135/73 92 06/06/17 18:00 102 H 06/06/17 16:06 98.8 F 108 H 18 174/99 94 06/06/17 12:11 98.9 F 105 H 18 137/79 95 - Physical Examination General: No Apparent Distress HEENT: Positive: PERRL Neck: Positive: trachea midline Cardiac: Positive: Reg Rate and Rhythm Neuro: Positive: Grossly Intact Extremities: Absent: edema - Labs and Meds Cardiac Enzymes 06/06/17 Range/Units 09:20 AST 15 (5-40) units/L Lactate Dehydrogenase 154 (91-180) units/L CBC 06/07/17 Range/Units 05:42 WBC 13.0 H (4.5-11.0) K/mm3 RBC 3.45 L (3.65-5.03) M/mm3 Hgb 9.9 L (11.8-15.2) gm/dl Hct 30.4 L (35.5-45.6) % Plt Count 205 (140-440) K/mm3 Lymph # 1.4 (1.2-5.4) K/mm3 [place] # 1.7 H (0.0-0.8) K/mm3 Eos # 0.0 (0.0-0.4) K/mm3 Baso # 0.0 (0.0-0.1) K/mm3 Comprehensive Metabolic Panel 06/06/17 06/07/17 Range/Units 09:20 05:42 Sodium 135 L (137-145) mmol/L Potassium 4.5 (3.6-5.0) mmol/L Chloride 99.7 (98-107) mmol/L Carbon Dioxide 19 L (22-30) mmol/L BUN 25 H (9-20) mg/dL Creatinine 1.7 H (0.8-1.5) mg/dL Glucose 141 H (75-100) mg/dL Calcium 8.3 L (8.4-10.2) mg/dL Direct Bilirubin 0.4 H (0-0.2) mg/dL Indirect Bilirubin 0.4 mg/dL AST 15 (5-40) units/L ALT 10 (7-56) units/L Alkaline Phosphatase 81 (35-129) units/L Total Protein 6.9 (6.3-8.2) g/dL Albumin 2.7 L (3.9-5) g/dL - Imaging and Cardiology EKG: image reviewed
--- NOTE | 2017-06-07 12:53 | Progress Note ---
Assessment and Plan 56 y/o male with large right sided pleural effusion and prior history of smoking. 1. Follow up remainder of PFA 2. Follow up cultures 3. Will continue to follow. Subjective Date of service: 06/07/17 Interval history: No acute events. had Thora done yesterday but I cannot find the amount that was removed. neutrophil predominant but the remainder of the PFA is not back yet. Objective Vital Signs - 12hr 06/07/17 06/07/17 06/07/17 02:00 07:50 10:00 Temperature 100.0 F H Pulse Rate 101 H 82 Respiratory 16 18 Rate Blood Pressure 123/66 Blood Pressure [Left] O2 Sat by Pulse 97 Oximetry 06/07/17 12:00 Temperature 99.9 F H Pulse Rate 85 Respiratory 16 Rate Blood Pressure Blood Pressure 127/78 [Left] O2 Sat by Pulse 95 Oximetry Constitutional: no acute distress, alert Eyes: non-icteric ENT: oropharynx moist Neck: supple Effort: normal Ascultation: Right: diminished breath sounds, egophony, Left: clear Percussion: Right: dull Tactile fremitus: Right: diminished Cardiovascular: regular rate and rhythm Gastrointestinal: normoactive bowel sounds, soft, non-tender Extremities: no edema Psychiatric: mood appropriate, affect normal CBC and BMP: 06/07/17 05:42 06/07/17 05:42 ABG, PT/INR, D-dimer: PT/INR, D-dimer PT 17.3 Sec. (12.2-14.9) H 06/05/17 20:58 INR 1.34 (0.87-1.13) H 06/05/17 20:58 D-Dimer 2377.87 ng/mlDDU (0-234) H 06/05/17 20:58 Abnormal lab findings: Abnormal Labs 06/05/17 06/05/17 06/05/17 12:33 12:33 20:10 WBC 15.8 H RBC Hgb Hct Lymph % (Auto) 7.1 L [place] % (Auto) 10.4 H Lymph # 1.1 L [place] # 1.6 H Seg Neutrophils % 82.1 H Seg Neutrophils # 12.9 H PT INR D-Dimer Sodium 134 L Carbon Dioxide 21 L BUN 21 H Creatinine Glucose 133 H POC Glucose Calcium Direct Bilirubin Total Creatine Kinase Troponin T 0.041 H Albumin LDL Cholesterol Direct 42 L 06/05/17 06/06/17 06/06/17 20:58 02:23 03:19 WBC RBC Hgb Hct Lymph % (Auto) [place] % (Auto) Lymph # [place] # Seg Neutrophils % Seg Neutrophils # PT 17.3 H INR 1.34 H D-Dimer 2377.87 H Sodium Carbon Dioxide BUN Creatinine Glucose POC Glucose 127 H Calcium Direct Bilirubin Total Creatine Kinase Troponin T 0.031 H D Albumin LDL Cholesterol Direct 06/06/17 06/06/17 06/06/17 07:48 07:59 09:20 WBC 15.7 H RBC Hgb 10.6 L Hct 32.6 L Lymph % (Auto) 5.2 L [place] % (Auto) 9.8 H Lymph # 0.8 L [place] # 1.5 H Seg Neutrophils % 84.8 H Seg Neutrophils # 13.3 H PT INR D-Dimer Sodium Carbon Dioxide BUN Creatinine Glucose POC Glucose 150 H Calcium Direct Bilirubin Total Creatine Kinase 186 H Troponin T Albumin LDL Cholesterol Direct 06/06/17 06/06/17 06/06/17 09:20 09:20 12:17 WBC RBC Hgb Hct Lymph % (Auto) [place] % (Auto) Lymph # [place] # Seg Neutrophils % Seg Neutrophils # PT INR D-Dimer Sodium 135 L Carbon Dioxide 19 L BUN 22 H Creatinine Glucose 161 H POC Glucose 180 H Calcium 8.3 L Direct Bilirubin 0.4 H Total Creatine Kinase Troponin T Albumin 2.7 L LDL Cholesterol Direct 06/06/17 06/06/17 06/07/17 15:53 21:18 05:42 WBC 13.0 H RBC 3.45 L Hgb 9.9 L Hct 30.4 L Lymph % (Auto) 11.0 L [place] % (Auto) 12.8 H Lymph # [place] # 1.7 H Seg Neutrophils % 75.6 H Seg Neutrophils # 9.8 H PT INR D-Dimer Sodium Carbon Dioxide BUN Creatinine Glucose POC Glucose 144 H 163 H Calcium Direct Bilirubin Total Creatine Kinase Troponin T Albumin LDL Cholesterol Direct 06/07/17 05:42 WBC RBC Hgb Hct Lymph % (Auto) [place] % (Auto) Lymph # [place] # Seg Neutrophils % Seg Neutrophils # PT INR D-Dimer Sodium 135 L Carbon Dioxide 19 L BUN 25 H Creatinine 1.7 H Glucose 141 H POC Glucose Calcium 8.3 L Direct Bilirubin Total Creatine Kinase Troponin T Albumin LDL Cholesterol Direct
[2017-06-07] MEDS ORDERED: TAMIFLU PO SCH ×2 (13:00→22:00)
--- NOTE | 2017-06-07 13:06 | Progress Note ---
Assessment and Plan Assessment: 1) Sepsis: Resolving. Etiology ?pneumonia 2) Presume large para pneumonic pleural effucion vs malignancy vs TB -Chest CTA 06/05 showed small infiltrates to right upper lobe -repeat chest x-ray 06/06 showed large right pleural effusion with adjacent consolidation, s/p thoracentesis, fluids pending -CRP 25 3) Hypertension; stable 4) Diabetes; stable 5) Dementia Plan: -follow-up blood cultures -f/u influenza antigen PCR in nasopharynx -f/u AFB blood cultures -continue levaquin -stop tamiflu -airborne precaution -f/u pleural fluid labs will round on Saturday Thank you Dr ziegler for your consultation, will follow up with you. Emilee Erazo MD Infectious Diseases Specialist [facility] M [phone] O [phone] Subjective Date of service: 06/07/17 Principal diagnosis: pneumonia Interval history: I feel so much better today, no fever Microbiology: Blood cultures: 06/05 ngtd Respiratory culture Current Antimicrobials: Levaquin 06/06 Previous Antimicrobials: Objective - Exam Narrative Exam: General appearance: Alert in NAD, conversant Eyes: anicteric sclerae, moist conjunctivae; no lid-lag; PERRLA HENT: Atraumatic; oropharynx c+shallow ulcers with mild thrush Lungs: karoline crackles, occasional SOB CV: RRR, no murmurs Abdomen: Soft, non-tender; +BS x 4 Extremities: No peripheral edema or extremity lymphadenopathy Skin: Normal temperature, turgor and texture; no rash, ulcers or subcutaneous nodules Psych: Appropriate affect, calm and cooperative Neuro: alert and oriented x 3. Moving all extermities Lines: No CVL / PICC - Constitutional Vitals: Vital Signs Temp Pulse Resp BP Pulse Ox 99.9 F H 85 16 127/78 95 06/07/17 12:00 06/07/17 12:00 06/07/17 12:00 06/07/17 12:00 06/07/17 12:00 Temperature -Last 24 Hours Temperature 99.9 F Temperature 100.0 F Temperature 97.5 F Temperature 97.5 F Temperature 98.8 F - Labs CBC & Chem 7: 06/07/17 05:42 06/07/17 05:42 Labs: Abnormal lab results 06/06/17 06/06/17 06/06/17 Range/Units 07:59 09:20 12:17 WBC (4.5-11.0) K/mm3 RBC (3.65-5.03) M/mm3 Hgb (11.8-15.2) gm/dl Hct (35.5-45.6) % Lymph % (Auto) (13.4-35.0) % [place] % (Auto) (0.0-7.3) % [place] # (0.0-0.8) K/mm3 Seg Neutrophils % (40.0-70.0) % Seg Neutrophils # (1.8-7.7) K/mm3 Sodium (137-145) mmol/L Carbon Dioxide (22-30) mmol/L BUN (9-20) mg/dL Creatinine (0.8-1.5) mg/dL Glucose (75-100) mg/dL POC Glucose 150 H 180 H (70-105) Calcium (8.4-10.2) mg/dL Direct Bilirubin 0.4 H (0-0.2) mg/dL Albumin 2.7 L (3.9-5) g/dL 06/06/17 06/06/17 06/07/17 Range/Units 15:53 21:18 05:42 WBC 13.0 H (4.5-11.0) K/mm3 RBC 3.45 L (3.65-5.03) M/mm3 Hgb 9.9 L (11.8-15.2) gm/dl Hct 30.4 L (35.5-45.6) % Lymph % (Auto) 11.0 L (13.4-35.0) % [place] % (Auto) 12.8 H (0.0-7.3) % [place] # 1.7 H (0.0-0.8) K/mm3 Seg Neutrophils % 75.6 H (40.0-70.0) % Seg Neutrophils # 9.8 H (1.8-7.7) K/mm3 Sodium (137-145) mmol/L Carbon Dioxide (22-30) mmol/L BUN (9-20) mg/dL Creatinine (0.8-1.5) mg/dL Glucose (75-100) mg/dL POC Glucose 144 H 163 H (70-105) Calcium (8.4-10.2) mg/dL Direct Bilirubin (0-0.2) mg/dL Albumin (3.9-5) g/dL 06/07/17 Range/Units 05:42 WBC (4.5-11.0) K/mm3 RBC (3.65-5.03) M/mm3 Hgb (11.8-15.2) gm/dl Hct (35.5-45.6) % Lymph % (Auto) (13.4-35.0) % [place] % (Auto) (0.0-7.3) % [place] # (0.0-0.8) K/mm3 Seg Neutrophils % (40.0-70.0) % Seg Neutrophils # (1.8-7.7) K/mm3 Sodium 135 L (137-145) mmol/L Carbon Dioxide 19 L (22-30) mmol/L BUN 25 H (9-20) mg/dL Creatinine 1.7 H (0.8-1.5) mg/dL Glucose 141 H (75-100) mg/dL POC Glucose (70-105) Calcium 8.3 L (8.4-10.2) mg/dL Direct Bilirubin (0-0.2) mg/dL Albumin (3.9-5) g/dL
--- NOTE | 2017-06-07 16:09 | Progress Note ---
Assessment and Plan Assessment and Plan Assessment and plan: 56-year-old man with a history of hepatitis C, hypertension, diabetes and dementia was brought to the emergency room for evaluation of right rib pain, fever, cough productive of green phlegm Sepsis pneumonia ?aspiration Large loculated pleural effusion Chronically elevated Troponin Hypertension Diabetes Dementia Plan IV antibiotics, IR to see if thoracentesis is possible, FLUID Studies. Follow cultures, check fingersticks initiate insulin sliding scale Continue appropriate outpatient medications DVT prophylaxis Subjective Date of service: 06/07/17 Principal diagnosis: pneumonia,Sepsis Interval history: Sx better Objective - Constitutional Vitals: Vital Signs - 12hr 06/07/17 06/07/17 06/07/17 07:50 10:00 12:00 Temperature 100.0 F H 99.9 F H Pulse Rate 82 85 Respiratory 16 18 16 Rate Blood Pressure 123/66 Blood Pressure 127/78 [Left] O2 Sat by Pulse 97 95 Oximetry 06/07/17 15:29 Temperature 101.0 F H Pulse Rate 89 Respiratory 18 Rate Blood Pressure 116/70 Blood Pressure [Left] O2 Sat by Pulse 96 Oximetry General appearance: Present: no acute distress, well-nourished - EENT Eyes: PERRL, EOM intact ENT: hearing intact, clear oral mucosa Ears: bilateral: normal - Neck Neck: supple, normal ROM - Respiratory Respiratory effort: normal Respiratory: bilateral: CTA - Breasts Breasts: normal - Cardiovascular Rhythm: regular Heart Sounds: Present: S1 & S2. Absent: gallop, rub Extremities: pulses intact, No edema, normal color, Full ROM - Gastrointestinal General gastrointestinal: Present: soft, non-tender, non-distended, normal bowel sounds - Genitourinary Male genitourinary: normal - Integumentary Integumentary: clear, warm, dry - Musculoskeletal Musculoskeletal: 1, strength equal bilaterally - Neurologic Neurologic: moves all extremities - Psychiatric Psychiatric: memory intact, appropriate mood/affect, intact judgment & insight - Labs CBC & Chem 7: 06/08/17 06:27 06/08/17 06:27 Labs: Abnormal lab results 06/06/17 06/06/17 06/06/17 Range/Units 07:59 12:17 15:53 WBC (4.5-11.0) K/mm3 RBC (3.65-5.03) M/mm3 Hgb (11.8-15.2) gm/dl Hct (35.5-45.6) % Lymph % (Auto) (13.4-35.0) % [place] % (Auto) (0.0-7.3) % [place] # (0.0-0.8) K/mm3 Seg Neutrophils % (40.0-70.0) % Seg Neutrophils # (1.8-7.7) K/mm3 Sodium (137-145) mmol/L Carbon Dioxide (22-30) mmol/L BUN (9-20) mg/dL Creatinine (0.8-1.5) mg/dL Glucose (75-100) mg/dL POC Glucose 150 H 180 H 144 H (70-105) Calcium (8.4-10.2) mg/dL C-Reactive Protein (0.00-1.30) mg/dL 06/06/17 06/07/17 06/07/17 Range/Units 21:18 05:42 05:42 WBC 13.0 H (4.5-11.0) K/mm3 RBC 3.45 L (3.65-5.03) M/mm3 Hgb 9.9 L (11.8-15.2) gm/dl Hct 30.4 L (35.5-45.6) % Lymph % (Auto) 11.0 L (13.4-35.0) % [place] % (Auto) 12.8 H (0.0-7.3) % Geary # 1.7 H (0.0-0.8) K/mm3 Seg Neutrophils % 75.6 H (40.0-70.0) % Seg Neutrophils # 9.8 H (1.8-7.7) K/mm3 Sodium 135 L (137-145) mmol/L Carbon Dioxide 19 L (22-30) mmol/L BUN 25 H (9-20) mg/dL Creatinine 1.7 H (0.8-1.5) mg/dL Glucose 141 H (75-100) mg/dL POC Glucose 163 H (70-105) Calcium 8.3 L (8.4-10.2) mg/dL C-Reactive Protein (0.00-1.30) mg/dL 06/07/17 06/07/17 06/07/17 Range/Units 07:56 11:52 13:19 WBC (4.5-11.0) K/mm3 RBC (3.65-5.03) M/mm3 Hgb (11.8-15.2) gm/dl Hct (35.5-45.6) % Lymph % (Auto) (13.4-35.0) % Geary % (Auto) (0.0-7.3) % Geary # (0.0-0.8) K/mm3 Seg Neutrophils % (40.0-70.0) % Seg Neutrophils # (1.8-7.7) K/mm3 Sodium (137-145) mmol/L Carbon Dioxide (22-30) mmol/L BUN (9-20) mg/dL Creatinine (0.8-1.5) mg/dL Glucose (75-100) mg/dL POC Glucose 153 H 185 H (70-105) Calcium (8.4-10.2) mg/dL C-Reactive Protein 25.80 H (0.00-1.30) mg/dL 06/07/17 Range/Units 15:35 WBC (4.5-11.0) K/mm3 RBC (3.65-5.03) M/mm3 Hgb (11.8-15.2) gm/dl Hct (35.5-45.6) % Lymph % (Auto) (13.4-35.0) % Geary % (Auto) (0.0-7.3) % Geary # (0.0-0.8) K/mm3 Seg Neutrophils % (40.0-70.0) % Seg Neutrophils # (1.8-7.7) K/mm3 Sodium (137-145) mmol/L Carbon Dioxide (22-30) mmol/L BUN (9-20) mg/dL Creatinine (0.8-1.5) mg/dL Glucose (75-100) mg/dL POC Glucose 133 H (70-105) Calcium (8.4-10.2) mg/dL C-Reactive Protein (0.00-1.30) mg/dL
[2017-06-08 06:43] LABS: Basophils % (Auto) 0.3 % (0.0-1.8); Eosinophils % (Auto) 0.2 % (0.0-4.3); Hematocrit 29.2 % (35.5-45.6); Hemoglobin 9.7 gm/dl (11.8-15.2); Lymphocytes # (Auto) 0.9 K/mm3 (1.2-5.4); Lymphocytes % (Auto) 7.5 % (13.4-35.0); Mean Corpuscular HGB Conc 33 % (32-34); Mean Corpuscular Hemoglobin 29 pg (28-32); Mean Corpuscular Volume 87 fl (84-94); Monocytes # (Auto) 1.3 K/mm3 (0.0-0.8); Monocytes % (Auto) 10.5 % (0.0-7.3); Platelet Count 209 K/mm3 (140-440); Red Blood Count 3.36 M/mm3 (3.65-5.03); Red Cell Distribution Width 14.4 % (13.2-15.2)
[2017-06-08 07:07] LABS: Albumin 2.5 g/dL (3.9-5); Calcium 8.1 mg/dL (8.4-10.2)
[2017-06-08] MEDS: NOVOLOG SUB-Q SCH ×4 (08:39→22:31)
[2017-06-08] MEDS: NACL 0.9% 1000 ML 1,000 ML IV SCH (09:00)
[2017-06-08] MEDS: LEVAQUIN 750MG/150ML 750 MG/150 ML BAG IV SCH (09:48)
[2017-06-08] MEDS: PEPCID PO SCH ×2 (09:49→22:31)
[2017-06-08] MEDS: NEURONTIN PO SCH ×2 (09:49→22:31)
[2017-06-08] MEDS: VITAMIN B-1 PO SCH (09:49)
[2017-06-08] MEDS: FOLVITE PO SCH (09:49)
[2017-06-08] MEDS: THERAGRAN Tab PO SCH (09:49)
[2017-06-08] MEDS: LOVENOX SUB-Q SCH (09:49)
[2017-06-08] MEDS: COREG PO SCH ×2 (10:36→22:31)
--- NOTE | 2017-06-08 16:12 | Progress Note ---
Assessment and Plan Assessment and Plan Assessment and plan: 56-year-old man with a history of hepatitis C, hypertension, diabetes and dementia was brought to the emergency room for evaluation of right rib pain, fever, cough productive of green phlegm Sepsis pneumonia ?aspiration Large loculated pleural effusion Chronically elevated Troponin Hypertension Diabetes Dementia Plan IV antibiotics, Repeat Thoracentesis, FLUID Studies. Follow cultures, check fingersticks initiate insulin sliding scale Continue appropriate outpatient medications DVT prophylaxis Subjective Date of service: 06/08/17 Principal diagnosis: pneumonia Interval history: Sx better Objective - Constitutional Vitals: Vital Signs - 12hr 06/08/17 06/08/17 06/08/17 07:40 09:57 15:31 Temperature 98.3 F 101.6 F H Pulse Rate 81 86 Respiratory 19 20 Rate Blood Pressure 88/59 103/65 121/69 O2 Sat by Pulse 94 96 Oximetry General appearance: Present: no acute distress, well-nourished - EENT Eyes: PERRL, EOM intact ENT: hearing intact, clear oral mucosa Ears: bilateral: normal - Neck Neck: supple, normal ROM - Respiratory Respiratory effort: normal Respiratory: bilateral: CTA - Breasts Breasts: normal - Cardiovascular Rhythm: regular Heart Sounds: Present: S1 & S2. Absent: gallop, rub Extremities: pulses intact, No edema, normal color, Full ROM - Gastrointestinal General gastrointestinal: Present: soft, non-tender, non-distended, normal bowel sounds - Genitourinary Male genitourinary: normal - Integumentary Integumentary: clear, warm, dry - Musculoskeletal Musculoskeletal: 1, strength equal bilaterally - Neurologic Neurologic: moves all extremities - Psychiatric Psychiatric: memory intact, appropriate mood/affect, intact judgment & insight - Labs CBC & Chem 7: 06/08/17 06:27 06/08/17 06:27 Labs: Abnormal lab results 06/07/17 06/08/17 06/08/17 Range/Units 21:23 05:22 06:27 WBC 11.9 H (4.5-11.0) K/mm3 RBC 3.36 L (3.65-5.03) M/mm3 Hgb 9.7 L (11.8-15.2) gm/dl Hct 29.2 L (35.5-45.6) % Lymph % (Auto) 7.5 L (13.4-35.0) % [place] % (Auto) 10.5 H (0.0-7.3) % Lymph # 0.9 L (1.2-5.4) K/mm3 [place] # 1.3 H (0.0-0.8) K/mm3 Seg Neutrophils % 81.5 H (40.0-70.0) % Seg Neutrophils # 9.7 H (1.8-7.7) K/mm3 Sodium (137-145) mmol/L Carbon Dioxide (22-30) mmol/L BUN (9-20) mg/dL Glucose (75-100) mg/dL POC Glucose 163 H 127 H (70-105) Calcium (8.4-10.2) mg/dL Albumin (3.9-5) g/dL 06/08/17 06/08/17 06/08/17 Range/Units 06:27 11:29 15:38 WBC (4.5-11.0) K/mm3 RBC (3.65-5.03) M/mm3 Hgb (11.8-15.2) gm/dl Hct (35.5-45.6) % Lymph % (Auto) (13.4-35.0) % [place] % (Auto) (0.0-7.3) % Lymph # (1.2-5.4) K/mm3 [place] # (0.0-0.8) K/mm3 Seg Neutrophils % (40.0-70.0) % Seg Neutrophils # (1.8-7.7) K/mm3 Sodium 135 L (137-145) mmol/L Carbon Dioxide 18 L (22-30) mmol/L BUN 25 H (9-20) mg/dL Glucose 145 H (75-100) mg/dL POC Glucose 187 H 112 H (70-105) Calcium 8.1 L (8.4-10.2) mg/dL Albumin 2.5 L (3.9-5) g/dL
[2017-06-08] MEDS: TYLENOL PO PRN (20:12)
[2017-06-09] MEDS: NACL 0.9% 1000 ML 1,000 ML IV SCH ×2 (05:20→21:16)
[2017-06-09] MEDS: NOVOLOG SUB-Q SCH ×4 (07:40→23:04)
--- NOTE | 2017-06-09 11:03 | Progress Note ---
Assessment and Plan Assessment: 1) Sepsis: Still fever. Leucocytosis trending down. Etiology ?pneumonia 2) Presume large para pneumonic pleural effusion vs malignancy vs TB -Chest CTA 06/05 showed small infiltrates to right upper lobe -repeat chest x-ray 06/06 showed large right pleural effusion with adjacent consolidation, s/p thoracentesis, fluids pending -CRP 25 -influenza A and B antigen negative 06/07 -blood culture 06/05 ngtd 3) Hypertension; stable 4) Diabetes; stable 5) Dementia Plan: -follow-up blood cultures, in progress -f/u AFB blood cultures, received -f/u TB quantiferon, received -continue levaquin -airborne precaution -f/u pleural fluid cx -monitor fever Thank you Dr ziegler for your consultation, will follow up with you. Jay Roberts NP-C for Dr. Emilee Erazo MD Infectious Diseases Specialist [facility], [place], [facility] ([facility]) M [phone] O [phone] Subjective Date of service: 06/09/17 Principal diagnosis: pneumonia Interval history: I feel a little better, fever Microbiology: Blood cultures: 06/05 ngtd Respiratory culture Current Antimicrobials: Levaquin 06/06 Previous Antimicrobials: Objective - Exam Narrative Exam: General appearance: Alert in NAD, conversant Eyes: anicteric sclerae, moist conjunctivae; no lid-lag; PERRLA HENT: Atraumatic; oropharynx c+shallow ulcers with mild thrush Lungs: karoline crackles, occasional SOB CV: RRR, no murmurs Abdomen: Soft, non-tender; +BS x 4 Extremities: No peripheral edema or extremity lymphadenopathy Skin: Normal temperature, turgor and texture; no rash, ulcers or subcutaneous nodules Psych: Appropriate affect, calm and cooperative Neuro: alert and oriented x 3. Moving all extermities Lines: No CVL / PICC - Constitutional Vitals: Vital Signs Temp Pulse Resp BP Pulse Ox 100.8 F H 90 20 142/81 94 06/09/17 08:09 06/09/17 08:09 06/09/17 08:09 06/09/17 08:09 06/09/17 08:09 Temperature -Last 24 Hours Temperature 100.8 F Temperature 100.3 F Temperature 99.4 F Temperature 99.4 F Temperature 99.3 F Temperature 101.8 F Temperature 101.6 F - Labs CBC & Chem 7: 06/08/17 06:27 06/08/17 06:27 Labs: Abnormal lab results 06/08/17 06/08/17 06/08/17 Range/Units 11:29 15:38 22:10 POC Glucose 187 H 112 H 157 H (70-105) 06/09/17 Range/Units 06:23 POC Glucose 151 H (70-105)
[2017-06-09] MEDS: FOLVITE PO SCH (11:13)
[2017-06-09] MEDS: LEVAQUIN 750MG/150ML 750 MG/150 ML BAG IV SCH (11:13)
[2017-06-09] MEDS: COREG PO SCH ×2 (11:13→21:18)
[2017-06-09] MEDS: LOVENOX SUB-Q SCH (11:13)
[2017-06-09] MEDS: PEPCID PO SCH ×2 (11:14→21:17)
[2017-06-09] MEDS: THERAGRAN Tab PO SCH (11:14)
[2017-06-09] MEDS: VITAMIN B-1 PO SCH (11:14)
[2017-06-09] MEDS: NEURONTIN PO SCH ×2 (11:14→21:18)
--- NOTE | 2017-06-09 12:58 | Progress Note ---
Assessment and Plan 56 y/o male with large right sided pleural effusion and prior history of smoking. 1. Follow up remainder of PFA 2. Follow up cultures 3. Will continue to follow. 4. Will repeat CXR for tomorrow to see if fluid has reaccumulated. may need repeat tap. Symptomatically, stable and shortness of breath has not been an issue. Subjective Date of service: 06/09/17 Principal diagnosis: pneumonia Interval history: Cultures still not finalized on pleural fluid although no organisms seen. Now patient having fever despite being on abx therapy. ID rounding today. Objective Vital Signs - 12hr 06/09/17 06/09/17 06/09/17 00:55 01:00 06:18 Temperature 99.4 F 99.4 F 100.3 F H Pulse Rate 84 84 85 Respiratory 16 18 20 Rate Blood Pressure 142/82 129/65 Blood Pressure 142/82 [Left] O2 Sat by Pulse 96 96 93 Oximetry 06/09/17 08:09 Temperature 100.8 F H Pulse Rate 90 Respiratory 20 Rate Blood Pressure 142/81 Blood Pressure [Left] O2 Sat by Pulse 94 Oximetry Constitutional: no acute distress, alert Eyes: non-icteric ENT: oropharynx moist Neck: supple Effort: normal Ascultation: Right: diminished breath sounds, egophony, Left: clear Percussion: Right: dull Tactile fremitus: Right: diminished Cardiovascular: regular rate and rhythm Gastrointestinal: normoactive bowel sounds, soft, non-tender Extremities: no edema Psychiatric: mood appropriate, affect normal CBC and BMP: 06/08/17 06:27 06/08/17 06:27 ABG, PT/INR, D-dimer: PT/INR, D-dimer PT 17.3 Sec. (12.2-14.9) H 06/05/17 20:58 INR 1.34 (0.87-1.13) H 06/05/17 20:58 D-Dimer 2377.87 ng/mlDDU (0-234) H 06/05/17 20:58 Abnormal lab findings: Abnormal Labs 06/05/17 06/05/17 06/05/17 12:33 12:33 20:10 WBC 15.8 H RBC Hgb Hct Lymph % (Auto) 7.1 L [place] % (Auto) 10.4 H Lymph # 1.1 L Stark # 1.6 H Seg Neutrophils % 82.1 H Seg Neutrophils # 12.9 H PT INR D-Dimer Sodium 134 L Carbon Dioxide 21 L BUN 21 H Creatinine Glucose 133 H POC Glucose Calcium Direct Bilirubin Total Creatine Kinase Troponin T 0.041 H C-Reactive Protein Albumin LDL Cholesterol Direct 42 L 06/05/17 06/06/17 06/06/17 20:58 02:23 03:19 WBC RBC Hgb Hct Lymph % (Auto) Stark % (Auto) Lymph # Stark # Seg Neutrophils % Seg Neutrophils # PT 17.3 H INR 1.34 H D-Dimer 2377.87 H Sodium Carbon Dioxide BUN Creatinine Glucose POC Glucose 127 H Calcium Direct Bilirubin Total Creatine Kinase Troponin T 0.031 H D C-Reactive Protein Albumin LDL Cholesterol Direct 06/06/17 06/06/17 06/06/17 07:48 07:59 09:20 WBC 15.7 H RBC Hgb 10.6 L Hct 32.6 L Lymph % (Auto) 5.2 L Stark % (Auto) 9.8 H Lymph # 0.8 L Stark # 1.5 H Seg Neutrophils % 84.8 H Seg Neutrophils # 13.3 H PT INR D-Dimer Sodium Carbon Dioxide BUN Creatinine Glucose POC Glucose 150 H Calcium Direct Bilirubin Total Creatine Kinase 186 H Troponin T C-Reactive Protein Albumin LDL Cholesterol Direct 06/06/17 06/06/17 06/06/17 09:20 09:20 12:17 WBC RBC Hgb Hct Lymph % (Auto) Stark % (Auto) Lymph # Stark # Seg Neutrophils % Seg Neutrophils # PT INR D-Dimer Sodium 135 L Carbon Dioxide 19 L BUN 22 H Creatinine Glucose 161 H POC Glucose 180 H Calcium 8.3 L Direct Bilirubin 0.4 H Total Creatine Kinase Troponin T C-Reactive Protein Albumin 2.7 L LDL Cholesterol Direct 06/06/17 06/06/17 06/07/17 15:53 21:18 05:42 WBC 13.0 H RBC 3.45 L Hgb 9.9 L Hct 30.4 L Lymph % (Auto) 11.0 L Stark % (Auto) 12.8 H Lymph # Stark # 1.7 H Seg Neutrophils % 75.6 H Seg Neutrophils # 9.8 H PT INR D-Dimer Sodium Carbon Dioxide BUN Creatinine Glucose POC Glucose 144 H 163 H Calcium Direct Bilirubin Total Creatine Kinase Troponin T C-Reactive Protein Albumin LDL Cholesterol Direct 02/06/2306/07/17 06/07/17 05:42 07:56 11:52 WBC RBC Hgb Hct Lymph % (Auto) Stark % (Auto) Lymph # Stark # Seg Neutrophils % Seg Neutrophils # PT INR D-Dimer Sodium 135 L Carbon Dioxide 19 L BUN 25 H Creatinine 1.7 H Glucose 141 H POC Glucose 153 H 185 H Calcium 8.3 L Direct Bilirubin Total Creatine Kinase Troponin T C-Reactive Protein Albumin LDL Cholesterol Direct 06/07/17 06/07/17 06/07/17 13:19 15:35 21:23 WBC RBC Hgb Hct Lymph % (Auto) Stark % (Auto) Lymph # Stark # Seg Neutrophils % Seg Neutrophils # PT INR D-Dimer Sodium Carbon Dioxide BUN Creatinine Glucose POC Glucose 133 H 163 H Calcium Direct Bilirubin Total Creatine Kinase Troponin T C-Reactive Protein 25.80 H Albumin LDL Cholesterol Direct 06/08/17 06/08/17 06/08/17 05:22 06:27 06:27 WBC 11.9 H RBC 3.36 L Hgb 9.7 L Hct 29.2 L Lymph % (Auto) 7.5 L Stark % (Auto) 10.5 H Lymph # 0.9 L Stark # 1.3 H Seg Neutrophils % 81.5 H Seg Neutrophils # 9.7 H PT INR D-Dimer Sodium 135 L Carbon Dioxide 18 L BUN 25 H Creatinine Glucose 145 H POC Glucose 127 H Calcium 8.1 L Direct Bilirubin Total Creatine Kinase Troponin T C-Reactive Protein Albumin 2.5 L LDL Cholesterol Direct 06/08/17 06/08/17 06/08/17 11:29 15:38 22:10 WBC RBC Hgb Hct Lymph % (Auto) Stark % (Auto) Lymph # Stark # Seg Neutrophils % Seg Neutrophils # PT INR D-Dimer Sodium Carbon Dioxide BUN Creatinine Glucose POC Glucose 187 H 112 H 157 H Calcium Direct Bilirubin Total Creatine Kinase Troponin T C-Reactive Protein Albumin LDL Cholesterol Direct 06/09/17 06/09/17 06:23 11:44 WBC RBC Hgb Hct Lymph % (Auto) Stark % (Auto) Lymph # [place] # Seg Neutrophils % Seg Neutrophils # PT INR D-Dimer Sodium Carbon Dioxide BUN Creatinine Glucose POC Glucose 151 H 141 H Calcium Direct Bilirubin Total Creatine Kinase Troponin T C-Reactive Protein Albumin LDL Cholesterol Direct
--- NOTE | 2017-06-09 13:48 | XRay Report ---
ROUTINE CHEST, TWO VIEWS: HISTORY: Right pleural effusion. The large right pleural effusion is essentially unchanged since 06/06/13. The inferior half of the right lung is compressed. The left lung is clear with evidence of emphysema. Heart size is grossly normal. IMPRESSION: No change in the large right pleural effusion.
--- NOTE | 2017-06-09 18:15 | Progress Note ---
Assessment and Plan Assessment and Plan Assessment and plan: 56-year-old man with a history of hepatitis C, hypertension, diabetes and dementia was brought to the emergency room for evaluation of right rib pain, fever, cough productive of green phlegm Large para pneumonic pleural effusion -Chest CTA 06/05 showed small infiltrates to right upper lobe -repeat chest x-ray 06/06 showed large right pleural effusion with adjacent consolidation, s/p thoracentesis, fluids pending -CRP 25 -influenza A and B antigen negative 06/07 -blood culture 06/05 ngtd Sepsis pneumonia ?aspiration Chronically elevated Troponin Hypertension Diabetes Dementia Plan IV antibiotics, Repeat Thoracentesis, FLUID Studies. Follow cultures, check fingersticks initiate insulin sliding scale Continue appropriate outpatient medications Will repeat Thoracentesis after d/w Dr Fish CXR --Same amount of fluid after Thoracentesis DVT prophylaxis Subjective Date of service: 06/09/17 Principal diagnosis: pneumonia Interval history: Sx better Objective - Constitutional Vitals: Vital Signs - 12hr 06/09/17 06/09/17 06/09/17 06:18 08:09 14:10 Temperature 100.3 F H 100.8 F H Pulse Rate 85 90 Respiratory 20 20 Rate Blood Pressure 129/65 142/81 O2 Sat by Pulse 93 94 97 Oximetry General appearance: Present: no acute distress, well-nourished - EENT Eyes: PERRL, EOM intact ENT: hearing intact, clear oral mucosa Ears: bilateral: normal - Neck Neck: supple, normal ROM - Respiratory Respiratory effort: normal Respiratory: bilateral: CTA - Breasts Breasts: normal - Cardiovascular Rhythm: regular Heart Sounds: Present: S1 & S2. Absent: gallop, rub Extremities: pulses intact, No edema, normal color, Full ROM - Gastrointestinal General gastrointestinal: Present: soft, non-tender, non-distended, normal bowel sounds - Genitourinary Male genitourinary: normal - Integumentary Integumentary: clear, warm, dry - Musculoskeletal Musculoskeletal: 1, strength equal bilaterally - Neurologic Neurologic: moves all extremities - Psychiatric Psychiatric: memory intact, appropriate mood/affect, intact judgment & insight - Labs CBC & Chem 7: 06/08/17 06:27 06/08/17 06:27 Labs: Abnormal lab results 06/08/17 06/09/17 06/09/17 Range/Units 22:10 06:23 11:44 POC Glucose 157 H 151 H 141 H (70-105)
[2017-06-10] MEDS: NOVOLOG SUB-Q SCH ×4 (08:02→22:04)
--- NOTE | 2017-06-10 08:10 | Progress Note ---
Assessment and Plan 56-year-old man with a history of hepatitis C, hypertension, diabetes and dementia was brought to the emergency room for evaluation of right rib pain, fever, cough productive of green phlegm * Large para pneumonic pleural effusion -Chest CTA 06/05 showed small infiltrates to right upper lobe -repeat chest x-ray 06/09 showed large right recurrent pleural effusion with adjacent consolidation, s/p thoracentesis, fluids pending -influenza A and B antigen negative 06/07 -blood culture 06/05 ngtd -Possible effusion. Repeat thoracocentesis vs thoracotomy * Sepsis from Pnuemonia Continu with iv antibiotc andf/u with CX result. So far negative * pneumonia ?aspiration Continue with iv levaquin per ID * Chronically elevated Troponin. trend * Hypertension controlled * Diabetes SSI and consistent carbohydrate diet Dementia Subjective Date of service: 06/10/17 Principal diagnosis: Pneumonia sepsis, Dm Interval history: No new complaint. Lying quietly in bed. Denies any fever, chest pain or shortness of breath Objective - Constitutional Vitals: Vital Signs - 12hr 06/09/17 06/09/17 06/09/17 21:18 22:00 23:46 Temperature 99.0 F Pulse Rate 89 86 Respiratory 16 Rate Blood Pressure 134/66 128/73 O2 Sat by Pulse 96 95 Oximetry 06/10/17 06/10/17 03:42 07:55 Temperature 100.3 F H Pulse Rate 90 Respiratory 20 Rate Blood Pressure 143/80 O2 Sat by Pulse 97 96 Oximetry General appearance: Present: no acute distress, other (frail) - EENT Eyes: PERRL, EOM intact - Neck Neck: supple, normal ROM - Respiratory Respiratory effort: normal Respiratory: bilateral: diminished - Breasts Breasts: normal - Cardiovascular Rhythm: regular Heart Sounds: Present: S1 & S2. Absent: gallop, rub Extremities: pulses intact, No edema, normal color, Full ROM - Gastrointestinal General gastrointestinal: Present: soft, non-tender, non-distended, normal bowel sounds - Integumentary Integumentary: clear, warm, dry - Musculoskeletal Musculoskeletal: 1, strength equal bilaterally - Neurologic Neurologic: moves all extremities - Psychiatric Psychiatric: appropriate mood/affect - Labs CBC & Chem 7: 06/08/17 06:27 06/08/17 06:27 Labs: Abnormal lab results 06/09/17 06/09/17 06/09/17 Range/Units 11:44 16:37 21:19 POC Glucose 141 H 138 H 153 H (70-105) 06/10/17 Range/Units 05:28 POC Glucose 118 H (70-105)
--- NOTE | 2017-06-10 10:18 | Progress Note ---
<JAY ROBERTS - Last Filed: 06/10/17 13:47> Assessment and Plan Assessment: 1) Sepsis: Still fever. Leucocytosis trending down. Etiology ?pneumonia 2) Presume large para pneumonic pleural effusion vs malignancy vs TB -Chest CTA 06/05 showed small infiltrates to right upper lobe -repeat chest x-ray 06/06 showed large right pleural effusion with adjacent consolidation, s/p thoracentesis, fluids pending -CRP 25 -influenza A and B antigen negative 06/07 -blood culture 06/05 ngtd 3) Hypertension; stable 4) Diabetes; stable 5) Dementia Plan: -follow-up blood cultures, in progress -f/u AFB blood cultures, received -f/u TB quantiferon, received -continue levaquin -airborne precaution -f/u pleural fluid cx -agree with repeat with parcentesis -continue to monitor fever Thank you Dr ziegler for your consultation, will follow up with you. Jay Roberts NP-C for Dr. Emilee Erazo MD Infectious Diseases Specialist [facility] ([facility]) M [phone] O [phone] Subjective Date of service: 06/10/17 Principal diagnosis: pneumonia Interval history: I feel a little better, still fever Microbiology: Blood cultures: 06/05 ngtd Respiratory culture Current Antimicrobials: Levaquin 06/06 Previous Antimicrobials: Objective - Exam Narrative Exam: General appearance: Alert in NAD, conversant Eyes: anicteric sclerae, moist conjunctivae; no lid-lag; PERRLA HENT: Atraumatic; oropharynx c+shallow ulcers with mild thrush Lungs: karoline crackles, occasional SOB CV: RRR, no murmurs Abdomen: Soft, non-tender; +BS x 4 Extremities: No peripheral edema or extremity lymphadenopathy Skin: Normal temperature, turgor and texture; no rash, ulcers or subcutaneous nodules Psych: Appropriate affect, calm and cooperative Neuro: alert and oriented x 3. Moving all extermities Lines: No CVL / PICC - Constitutional Vitals: Vital Signs Temp Pulse Resp BP Pulse Ox 99.3 F 86 20 141/81 96 06/10/17 08:05 06/10/17 08:05 06/10/17 08:05 06/10/17 08:05 06/10/17 08:05 Temperature -Last 24 Hours Temperature 99.3 F Temperature 100.3 F Temperature 99.0 F Temperature 99.4 F Temperature 98.6 F Temperature 99.0 F - Labs CBC & Chem 7: 06/08/17 06:27 06/08/17 06:27 Labs: Abnormal lab results 06/09/17 06/09/17 06/09/17 Range/Units 11:44 16:37 21:19 POC Glucose 141 H 138 H 153 H (70-105) 06/10/17 Range/Units 05:28 POC Glucose 118 H (70-105) <EMILEE BARNES - Last Filed: 06/10/17 16:13> Assessment and Plan I have personally interviewed and examined patient and agree with DEPUTY PROSECUTING ATTORNEY Nballu report. Agree with repeat thoracentesis. Emilee Hartmann MD Objective - Constitutional Vitals: Vital Signs Temp Pulse Resp BP Pulse Ox 99.3 F 86 20 141/81 96 06/10/17 08:05 06/10/17 08:05 06/10/17 08:05 06/10/17 08:05 06/10/17 08:05 Temperature -Last 24 Hours Temperature 99.3 F Temperature 100.3 F Temperature 99.0 F Temperature 99.4 F Temperature 98.6 F - Labs CBC & Chem 7: 06/08/17 06:27 06/08/17 06:27 Labs: Abnormal lab results 06/09/17 06/09/17 06/10/17 Range/Units 16:37 21:19 05:28 POC Glucose 138 H 153 H 118 H (70-105) 06/10/17 Range/Units 11:55 POC Glucose 142 H (70-105)
[2017-06-10] MEDS: LEVAQUIN 750MG/150ML 750 MG/150 ML BAG IV SCH (10:21)
[2017-06-10] MEDS: NEURONTIN PO SCH ×2 (10:22→22:55)
[2017-06-10] MEDS: COREG PO SCH ×2 (10:22→22:52)
[2017-06-10] MEDS: LOVENOX SUB-Q SCH (10:22)
[2017-06-10] MEDS: PEPCID PO SCH ×2 (10:23→22:54)
[2017-06-10] MEDS: FOLVITE PO SCH (10:23)
[2017-06-10] MEDS: THERAGRAN Tab PO SCH (10:24)
[2017-06-10] MEDS: VITAMIN B-1 PO SCH (10:24)
[2017-06-10] MEDS: NACL 0.9% 1000 ML 1,000 ML IV SCH (10:27)
--- NOTE | 2017-06-10 12:11 | Progress Note ---
Assessment and Plan Right-sided pleural effusion. Source unknown. Virtually, no blood or chemistries available at the time of my dictation for further comments. Differential count is consistent with inflammatory process. I attempted to review cytology but had no success opening report Pneumonia. Completing antibiotics Sepsis. Infectious disease is following Former smoker Recommendations In view of the size of the right pleural effusion, recommend repeat US guided thoracenteses Recommend to sample for; Chemistries including LDH/glucose/triglycerides/protein, WBC with differential, culture cytology. Pleural fluid ADA ( adenosine deaminidase) may be helpful if concern noted for TB. However, he TB unlikely if differential is not lymphocytic and mesothelial cells are seen on cytology I did a history review of this patient. He claims to have this chest symptoms for the last 3 or 4 months and reportedly treated multiple times with antibiotics as an outpatient. This raises the possibility of complicated, loculated parapneumonic effusion, but may need repeated drainage or thoracoscopy Subjective Date of service: 06/10/17 Principal diagnosis: pneumonia Interval history: Reports still some discomfort on the right side of the chest. No cough or expectoration. No hemoptysis at this time. Objective Vital Signs - 12hr 06/10/17 06/10/17 06/10/17 03:42 07:55 08:05 Temperature 100.3 F H 99.3 F Pulse Rate 90 86 Respiratory 20 20 Rate Blood Pressure 143/80 141/81 O2 Sat by Pulse 97 96 96 Oximetry Constitutional: no acute distress, alert Eyes: non-icteric ENT: oropharynx moist Neck: supple Effort: normal Ascultation: Right: diminished breath sounds, egophony, Left: clear Percussion: Right: dull Tactile fremitus: Right: diminished Cardiovascular: regular rate and rhythm Gastrointestinal: normoactive bowel sounds, soft, non-tender Extremities: no edema Neurologic: normal mental status, non-focal exam, pupils equal and round, CN II- XII normal Psychiatric: mood appropriate, affect normal CBC and BMP: 06/08/17 06:27 06/08/17 06:27 ABG, PT/INR, D-dimer: PT/INR, D-dimer PT 17.3 Sec. (12.2-14.9) H 06/05/17 20:58 INR 1.34 (0.87-1.13) H 06/05/17 20:58 D-Dimer 2377.87 ng/mlDDU (0-234) H 06/05/17 20:58 Abnormal lab findings: Abnormal Labs 06/05/17 06/05/17 06/05/17 12:33 12:33 20:10 WBC 15.8 H RBC Hgb Hct Lymph % (Auto) 7.1 L [place] % (Auto) 10.4 H Lymph # 1.1 L [place] # 1.6 H Seg Neutrophils % 82.1 H Seg Neutrophils # 12.9 H PT INR D-Dimer Sodium 134 L Carbon Dioxide 21 L BUN 21 H Creatinine Glucose 133 H POC Glucose Calcium Direct Bilirubin Total Creatine Kinase Troponin T 0.041 H C-Reactive Protein Albumin LDL Cholesterol Direct 42 L 06/05/17 06/06/17 06/06/17 20:58 02:23 03:19 WBC RBC Hgb Hct Lymph % (Auto) [place] % (Auto) Lymph # [place] # Seg Neutrophils % Seg Neutrophils # PT 17.3 H INR 1.34 H D-Dimer 2377.87 H Sodium Carbon Dioxide BUN Creatinine Glucose POC Glucose 127 H Calcium Direct Bilirubin Total Creatine Kinase Troponin T 0.031 H D C-Reactive Protein Albumin LDL Cholesterol Direct 06/06/17 06/06/17 06/06/17 07:48 07:59 09:20 WBC 15.7 H RBC Hgb 10.6 L Hct 32.6 L Lymph % (Auto) 5.2 L [place] % (Auto) 9.8 H Lymph # 0.8 L [place] # 1.5 H Seg Neutrophils % 84.8 H Seg Neutrophils # 13.3 H PT INR D-Dimer Sodium Carbon Dioxide BUN Creatinine Glucose POC Glucose 150 H Calcium Direct Bilirubin Total Creatine Kinase 186 H Troponin T C-Reactive Protein Albumin LDL Cholesterol Direct 06/06/17 06/06/17 06/06/17 09:20 09:20 12:17 WBC RBC Hgb Hct Lymph % (Auto) [place] % (Auto) Lymph # [place] # Seg Neutrophils % Seg Neutrophils # PT INR D-Dimer Sodium 135 L Carbon Dioxide 19 L BUN 22 H Creatinine Glucose 161 H POC Glucose 180 H Calcium 8.3 L Direct Bilirubin 0.4 H Total Creatine Kinase Troponin T C-Reactive Protein Albumin 2.7 L LDL Cholesterol Direct 06/06/17 06/06/17 06/07/17 15:53 21:18 05:42 WBC 13.0 H RBC 3.45 L Hgb 9.9 L Hct 30.4 L Lymph % (Auto) 11.0 L [place] % (Auto) 12.8 H Lymph # [place] # 1.7 H Seg Neutrophils % 75.6 H Seg Neutrophils # 9.8 H PT INR D-Dimer Sodium Carbon Dioxide BUN Creatinine Glucose POC Glucose 144 H 163 H Calcium Direct Bilirubin Total Creatine Kinase Troponin T C-Reactive Protein Albumin LDL Cholesterol Direct 06/07/17 06/07/17 06/07/17 05:42 07:56 11:52 WBC RBC Hgb Hct Lymph % (Auto) [place] % (Auto) Lymph # [place] # Seg Neutrophils % Seg Neutrophils # PT INR D-Dimer Sodium 135 L Carbon Dioxide 19 L BUN 25 H Creatinine 1.7 H Glucose 141 H POC Glucose 153 H 185 H Calcium 8.3 L Direct Bilirubin Total Creatine Kinase Troponin T C-Reactive Protein Albumin LDL Cholesterol Direct 06/07/17 06/07/17 06/07/17 13:19 15:35 21:23 WBC RBC Hgb Hct Lymph % (Auto) [place] % (Auto) Lymph # [place] # Seg Neutrophils % Seg Neutrophils # PT INR D-Dimer Sodium Carbon Dioxide BUN Creatinine Glucose POC Glucose 133 H 163 H Calcium Direct Bilirubin Total Creatine Kinase Troponin T C-Reactive Protein 25.80 H Albumin LDL Cholesterol Direct 06/08/17 06/08/17 06/08/17 05:22 06:27 06:27 WBC 11.9 H RBC 3.36 L Hgb 9.7 L Hct 29.2 L Lymph % (Auto) 7.5 L [place] % (Auto) 10.5 H Lymph # 0.9 L [place] # 1.3 H Seg Neutrophils % 81.5 H Seg Neutrophils # 9.7 H PT INR D-Dimer Sodium 135 L Carbon Dioxide 18 L BUN 25 H Creatinine Glucose 145 H POC Glucose 127 H Calcium 8.1 L Direct Bilirubin Total Creatine Kinase Troponin T C-Reactive Protein Albumin 2.5 L LDL Cholesterol Direct 06/08/17 06/08/17 06/08/17 11:29 15:38 22:10 WBC RBC Hgb Hct Lymph % (Auto) [place] % (Auto) Lymph # [place] # Seg Neutrophils % Seg Neutrophils # PT INR D-Dimer Sodium Carbon Dioxide BUN Creatinine Glucose POC Glucose 187 H 112 H 157 H Calcium Direct Bilirubin Total Creatine Kinase Troponin T C-Reactive Protein Albumin LDL Cholesterol Direct 06/09/17 06/09/17 06/09/17 06:23 11:44 16:37 WBC RBC Hgb Hct Lymph % (Auto) [place] % (Auto) Lymph # [place] # Seg Neutrophils % Seg Neutrophils # PT INR D-Dimer Sodium Carbon Dioxide BUN Creatinine Glucose POC Glucose 151 H 141 H 138 H Calcium Direct Bilirubin Total Creatine Kinase Troponin T C-Reactive Protein Albumin LDL Cholesterol Direct 06/09/17 06/10/17 06/10/17 21:19 05:28 11:55 WBC RBC Hgb Hct Lymph % (Auto) [place] % (Auto) Lymph # [place] # Seg Neutrophils % Seg Neutrophils # PT INR D-Dimer Sodium Carbon Dioxide BUN Creatinine Glucose POC Glucose 153 H 118 H 142 H Calcium Direct Bilirubin Total Creatine Kinase Troponin T C-Reactive Protein Albumin LDL Cholesterol Direct Chest x-ray: report reviewed, image reviewed CT scan - chest: report reviewed, image reviewed
[2017-06-11 06:59] LABS: Basophils % (Auto) 0.3 % (0.0-1.8); Eosinophils % (Auto) 0.3 % (0.0-4.3); Hematocrit 29.2 % (35.5-45.6); Hemoglobin 9.4 gm/dl (11.8-15.2); Lymphocytes # (Auto) 0.9 K/mm3 (1.2-5.4); Lymphocytes % (Auto) 5.9 % (13.4-35.0); Mean Corpuscular HGB Conc 32 % (32-34); Mean Corpuscular Hemoglobin 28 pg (28-32); Mean Corpuscular Volume 87 fl (84-94); Monocytes # (Auto) 1.8 K/mm3 (0.0-0.8); Monocytes % (Auto) 11.4 % (0.0-7.3); Platelet Count 273 K/mm3 (140-440); Red Blood Count 3.37 M/mm3 (3.65-5.03); Red Cell Distribution Width 14.6 % (13.2-15.2)
[2017-06-11] MEDS: NACL 0.9% 1000 ML 1,000 ML IV SCH ×2 (07:17→21:24)
[2017-06-11 07:22] LABS: Alanine Aminotransferase 11 units/L (7-56); Albumin 2.1 g/dL (3.9-5); BUN/Creatinine Ratio 12; Blood Urea Nitrogen 14 mg/dL (9-20); Calcium 7.6 mg/dL (8.4-10.2); Hemolysis Index 11
[2017-06-11] MEDS: NOVOLOG SUB-Q SCH ×4 (08:11→22:19)
[2017-06-11] MEDS: LEVAQUIN 750MG/150ML 750 MG/150 ML BAG IV SCH (09:10)
[2017-06-11] MEDS: TYLENOL PO PRN (09:10)
[2017-06-11] MEDS: LOVENOX SUB-Q SCH (09:11)
[2017-06-11] MEDS: COREG PO SCH ×2 (09:12→21:26)
[2017-06-11] MEDS: PEPCID PO SCH ×2 (09:12→21:25)
[2017-06-11] MEDS: NEURONTIN PO SCH ×2 (09:12→21:25)
[2017-06-11] MEDS: FOLVITE PO SCH (09:12)
[2017-06-11] MEDS: THERAGRAN Tab PO SCH (09:12)
[2017-06-11] MEDS: VITAMIN B-1 PO SCH (09:13)
--- NOTE | 2017-06-11 10:20 | Progress Note ---
Assessment and Plan Assessment: 1) Sepsis: Still fever and Leucocytosis. Etiology ?pneumonia 2) Recurrent arge para pneumonic pleural effusion vs malignancy ? -Chest CTA 06/05 showed small infiltrates to right upper lobe -repeat chest x-ray 06/06 showed large right pleural effusion with adjacent consolidation, s/p thoracentesis, fluids pending -CRP 25 -influenza A and B antigen negative 06/07 -blood culture 06/05 ngtd -TB quantiferon, negative -repeat blood cx 06/08/ ngtd 3) Hypertension; stable 4) Diabetes; stable 5) Dementia Plan: -needs thoracic surgery eval for possible VATS in view of persistent fever and leucocytosis -add zyvox po and zosyn iv -f/u AFB blood cultures, received -stop levaquin -f/u pleural fluid cx -continue to monitor fever Thank you Dr ziegler for your consultation, will follow up with you. Jay Roberts NP-C for Dr. Emilee Erazo MD Infectious Diseases Specialist [facility] ([facility]) M [phone] O [phone] Subjective Date of service: 06/11/17 Principal diagnosis: Pneumonia sepsis, Dm Interval history: I feel ok, still fever Microbiology: Blood cultures: 06/05 ngtd 06/08/ ngtd Respiratory culture influenza A and B antigen negative Current Antimicrobials: Levaquin 06/06 Previous Antimicrobials: Objective - Exam Narrative Exam: General appearance: Alert in NAD, conversant Eyes: anicteric sclerae, moist conjunctivae; no lid-lag; PERRLA HENT: Atraumatic; oropharynx c+shallow ulcers with mild thrush Lungs: karoline crackles, occasional SOB CV: RRR, no murmurs Abdomen: Soft, non-tender; +BS x 4 Extremities: No peripheral edema or extremity lymphadenopathy Skin: Normal temperature, turgor and texture; no rash, ulcers or subcutaneous nodules Psych: Appropriate affect, calm and cooperative Neuro: alert and oriented x 3. Moving all extermities Lines: No CVL / PICC - Constitutional Vitals: Vital Signs Temp Pulse Resp BP Pulse Ox 100.3 F H 80 18 136/92 95 06/11/17 08:21 06/11/17 08:21 06/11/17 08:21 06/11/17 08:21 06/11/17 10:00 Temperature -Last 24 Hours Temperature 100.3 F Temperature 98.1 F Temperature 100.6 F - Labs CBC & Chem 7: 06/11/17 06:25 06/11/17 06:25 Labs: Abnormal lab results 06/10/17 06/10/17 06/11/17 Range/Units 11:55 16:13 06:25 WBC 15.5 H (4.5-11.0) K/mm3 RBC 3.37 L (3.65-5.03) M/mm3 Hgb 9.4 L (11.8-15.2) gm/dl Hct 29.2 L (35.5-45.6) % Lymph % (Auto) 5.9 L (13.4-35.0) % [place] % (Auto) 11.4 H (0.0-7.3) % Lymph # 0.9 L (1.2-5.4) K/mm3 [place] # 1.8 H (0.0-0.8) K/mm3 Seg Neutrophils % 82.1 H (40.0-70.0) % Seg Neutrophils # 12.7 H (1.8-7.7) K/mm3 Sodium (137-145) mmol/L Carbon Dioxide (22-30) mmol/L Glucose (75-100) mg/dL POC Glucose 142 H 151 H (70-105) Calcium (8.4-10.2) mg/dL Total Protein (6.3-8.2) g/dL Albumin (3.9-5) g/dL 06/11/17 Range/Units 06:25 WBC (4.5-11.0) K/mm3 RBC (3.65-5.03) M/mm3 Hgb (11.8-15.2) gm/dl Hct (35.5-45.6) % Lymph % (Auto) (13.4-35.0) % [place] % (Auto) (0.0-7.3) % Lymph # (1.2-5.4) K/mm3 [place] # (0.0-0.8) K/mm3 Seg Neutrophils % (40.0-70.0) % Seg Neutrophils # (1.8-7.7) K/mm3 Sodium 135 L (137-145) mmol/L Carbon Dioxide 17 L (22-30) mmol/L Glucose 107 H (75-100) mg/dL POC Glucose (70-105) Calcium 7.6 L (8.4-10.2) mg/dL Total Protein 6.2 L (6.3-8.2) g/dL Albumin 2.1 L (3.9-5) g/dL
--- NOTE | 2017-06-11 12:16 | Progress Note ---
Assessment and Plan Right-sided pleural effusion. Source unknown. Per HX, suspecious for loculated parapneumonic effusion. Cytology negative for malignancy. Chemistries n/a. Still some fever, IGRA negative for TB Pneumonia. Completing antibiotics Sepsis. Infectious disease is following Former smoker Recommendations Discussed with IMS- agree with either repeat drainage, may benefit from Thoracic surgery evaluation for possible chest drainage, pleural decortication or similar procedure, if loculated/entraped lung Recommend repeat pleural fluid sample for; Chemistries including LDH/glucose/triglycerides/protein, WBC with differential, culture cytology. Pleural fluid ADA ( adenosine deaminidase) may be helpful if concern noted for TB. However, he TB unlikely if differential is not lymphocytic and mesothelial cells are seen on cytology Discussed with pt in detail. Subjective Date of service: 06/11/17 Principal diagnosis: Pneumonia sepsis, Dm Interval history: Reports still some discomfort on the right side of the chest. No cough or expectoration. No hemoptysis at this time. Objective Vital Signs - 12hr 06/11/17 06/11/17 08:21 10:00 Temperature 100.3 F H Pulse Rate 80 Respiratory 18 Rate Blood Pressure 136/92 O2 Sat by Pulse 93 95 Oximetry Constitutional: no acute distress, alert Eyes: non-icteric ENT: oropharynx moist Neck: supple Effort: normal Ascultation: Right: diminished breath sounds, egophony, Left: clear Percussion: Right: dull Tactile fremitus: Right: diminished Cardiovascular: regular rate and rhythm Gastrointestinal: normoactive bowel sounds, soft, non-tender Extremities: no edema Neurologic: normal mental status, non-focal exam, pupils equal and round, CN II- XII normal Psychiatric: mood appropriate, affect normal CBC and BMP: 06/11/17 06:25 06/11/17 06:25 ABG, PT/INR, D-dimer: PT/INR, D-dimer PT 17.3 Sec. (12.2-14.9) H 06/05/17 20:58 INR 1.34 (0.87-1.13) H 06/05/17 20:58 D-Dimer 2377.87 ng/mlDDU (0-234) H 06/05/17 20:58 Abnormal lab findings: Abnormal Labs 06/05/17 06/05/17 06/05/17 12:33 12:33 20:10 WBC 15.8 H RBC Hgb Hct Lymph % (Auto) 7.1 L [place] % (Auto) 10.4 H Lymph # 1.1 L [place] # 1.6 H Seg Neutrophils % 82.1 H Seg Neutrophils # 12.9 H PT INR D-Dimer Sodium 134 L Carbon Dioxide 21 L BUN 21 H Creatinine Glucose 133 H POC Glucose Calcium Direct Bilirubin Total Creatine Kinase Troponin T 0.041 H C-Reactive Protein Total Protein Albumin LDL Cholesterol Direct 42 L 06/05/17 06/06/17 06/06/17 20:58 02:23 03:19 WBC RBC Hgb Hct Lymph % (Auto) [place] % (Auto) Lymph # [place] # Seg Neutrophils % Seg Neutrophils # PT 17.3 H INR 1.34 H D-Dimer 2377.87 H Sodium Carbon Dioxide BUN Creatinine Glucose POC Glucose 127 H Calcium Direct Bilirubin Total Creatine Kinase Troponin T 0.031 H D C-Reactive Protein Total Protein Albumin LDL Cholesterol Direct 06/06/17 06/06/17 06/06/17 07:48 07:59 09:20 WBC 15.7 H RBC Hgb 10.6 L Hct 32.6 L Lymph % (Auto) 5.2 L [place] % (Auto) 9.8 H Lymph # 0.8 L [place] # 1.5 H Seg Neutrophils % 84.8 H Seg Neutrophils # 13.3 H PT INR D-Dimer Sodium Carbon Dioxide BUN Creatinine Glucose POC Glucose 150 H Calcium Direct Bilirubin Total Creatine Kinase 186 H Troponin T C-Reactive Protein Total Protein Albumin LDL Cholesterol Direct 06/06/17 06/06/17 06/06/17 09:20 09:20 12:17 WBC RBC Hgb Hct Lymph % (Auto) [place] % (Auto) Lymph # [place] # Seg Neutrophils % Seg Neutrophils # PT INR D-Dimer Sodium 135 L Carbon Dioxide 19 L BUN 22 H Creatinine Glucose 161 H POC Glucose 180 H Calcium 8.3 L Direct Bilirubin 0.4 H Total Creatine Kinase Troponin T C-Reactive Protein Total Protein Albumin 2.7 L LDL Cholesterol Direct 06/06/17 06/06/17 06/07/17 15:53 21:18 05:42 WBC 13.0 H RBC 3.45 L Hgb 9.9 L Hct 30.4 L Lymph % (Auto) 11.0 L [place] % (Auto) 12.8 H Lymph # [place] # 1.7 H Seg Neutrophils % 75.6 H Seg Neutrophils # 9.8 H PT INR D-Dimer Sodium Carbon Dioxide BUN Creatinine Glucose POC Glucose 144 H 163 H Calcium Direct Bilirubin Total Creatine Kinase Troponin T C-Reactive Protein Total Protein Albumin LDL Cholesterol Direct 06/07/17 06/07/17 06/07/17 05:42 07:56 11:52 WBC RBC Hgb Hct Lymph % (Auto) [place] % (Auto) Lymph # [place] # Seg Neutrophils % Seg Neutrophils # PT INR D-Dimer Sodium 135 L Carbon Dioxide 19 L BUN 25 H Creatinine 1.7 H Glucose 141 H POC Glucose 153 H 185 H Calcium 8.3 L Direct Bilirubin Total Creatine Kinase Troponin T C-Reactive Protein Total Protein Albumin LDL Cholesterol Direct 06/07/17 06/07/17 06/07/17 13:19 15:35 21:23 WBC RBC Hgb Hct Lymph % (Auto) [place] % (Auto) Lymph # [place] # Seg Neutrophils % Seg Neutrophils # PT INR D-Dimer Sodium Carbon Dioxide BUN Creatinine Glucose POC Glucose 133 H 163 H Calcium Direct Bilirubin Total Creatine Kinase Troponin T C-Reactive Protein 25.80 H Total Protein Albumin LDL Cholesterol Direct 06/08/17 06/08/17 06/08/17 05:22 06:27 06:27 WBC 11.9 H RBC 3.36 L Hgb 9.7 L Hct 29.2 L Lymph % (Auto) 7.5 L [place] % (Auto) 10.5 H Lymph # 0.9 L [place] # 1.3 H Seg Neutrophils % 81.5 H Seg Neutrophils # 9.7 H PT INR D-Dimer Sodium 135 L Carbon Dioxide 18 L BUN 25 H Creatinine Glucose 145 H POC Glucose 127 H Calcium 8.1 L Direct Bilirubin Total Creatine Kinase Troponin T C-Reactive Protein Total Protein Albumin 2.5 L LDL Cholesterol Direct 06/08/17 06/08/17 06/08/17 11:29 15:38 22:10 WBC RBC Hgb Hct Lymph % (Auto) [place] % (Auto) Lymph # [place] # Seg Neutrophils % Seg Neutrophils # PT INR D-Dimer Sodium Carbon Dioxide BUN Creatinine Glucose POC Glucose 187 H 112 H 157 H Calcium Direct Bilirubin Total Creatine Kinase Troponin T C-Reactive Protein Total Protein Albumin LDL Cholesterol Direct 06/09/17 06/09/17 06/09/17 06:23 11:44 16:37 WBC RBC Hgb Hct Lymph % (Auto) [place] % (Auto) Lymph # [place] # Seg Neutrophils % Seg Neutrophils # PT INR D-Dimer Sodium Carbon Dioxide BUN Creatinine Glucose POC Glucose 151 H 141 H 138 H Calcium Direct Bilirubin Total Creatine Kinase Troponin T C-Reactive Protein Total Protein Albumin LDL Cholesterol Direct 06/09/17 06/10/17 06/10/17 21:19 05:28 11:55 WBC RBC Hgb Hct Lymph % (Auto) [place] % (Auto) Lymph # [place] # Seg Neutrophils % Seg Neutrophils # PT INR D-Dimer Sodium Carbon Dioxide BUN Creatinine Glucose POC Glucose 153 H 118 H 142 H Calcium Direct Bilirubin Total Creatine Kinase Troponin T C-Reactive Protein Total Protein Albumin LDL Cholesterol Direct 06/10/17 06/11/17 06/11/17 16:13 06:25 06:25 WBC 15.5 H RBC 3.37 L Hgb 9.4 L Hct 29.2 L Lymph % (Auto) 5.9 L [place] % (Auto) 11.4 H Lymph # 0.9 L [place] # 1.8 H Seg Neutrophils % 82.1 H Seg Neutrophils # 12.7 H PT INR D-Dimer Sodium 135 L Carbon Dioxide 17 L BUN Creatinine Glucose 107 H POC Glucose 151 H Calcium 7.6 L Direct Bilirubin Total Creatine Kinase Troponin T C-Reactive Protein Total Protein 6.2 L Albumin 2.1 L LDL Cholesterol Direct 06/11/17 11:40 WBC RBC Hgb Hct Lymph % (Auto) [place] % (Auto) Lymph # [place] # Seg Neutrophils % Seg Neutrophils # PT INR D-Dimer Sodium Carbon Dioxide BUN Creatinine Glucose POC Glucose 109 H Calcium Direct Bilirubin Total Creatine Kinase Troponin T C-Reactive Protein Total Protein Albumin LDL Cholesterol Direct
[2017-06-11 13:04] LABS: LDH,Body Fluid 521; Total Protein,Body Fluid 4.9 (15.0-45.0)
--- NOTE | 2017-06-11 16:32 | Progress Note ---
Assessment and Plan Assessment and plan: 56-year-old man with a history of hepatitis C, hypertension, diabetes and dementia was brought to the emergency room for evaluation of right rib pain, fever, cough productive of green phlegm Sepsis- still with recurrent pneumonia ?aspiration Large loculated pleural effusion Chronically elevated Troponin Moderate to servere protein calorie malnutrition Hypertension Diabetes Dementia Plan Discussed with pulmonary and ID, patient still with recurrent low grade fever. Zosyn and zyvox added, levaquin stopped. This is likely parapneumonic infection, pateint states he has been on and off antibioitics for [address] surgery input. Loculated fluids cannot be drained by IR Quantiferon gold negative for TB, will d/c ISOLATION IF and when fluids obtained either via surgery will send for Chemistries including LDH/glucose/triglycerides/protein, WBC with differential, culture cytology. Pleural fluid ADA ( adenosine deaminidase) may be helpful if concern noted for TB. However, he TB unlikely if differential is not lymphocytic and mesothelial cells are seen on cytology Shredder Tender consult DVT/GI prophy History Interval history: Patient seen and examined, in no acute distress at this time. still with intermittent fever Hospitalist Physical - Physical exam Narrative exam: VITAL SIGNS: Reviewed. GENERAL: The patient appeared chronically ill appearing. Vital signs as documented. HEAD: No signs of head trauma. EYES: Pupils are equal. Extraocular motions intact. EARS: Hearing grossly intact. MOUTH: Oropharynx is normal. NECK: No adenopathy, no JVD. CHEST: Chest with Diminished breath sounds right. No wheezes, rales, or rhonchi. CARDIAC: Regular rate and rhythm. S1 and S2, without murmurs, gallops, or rubs. VASCULAR: No Edema. Peripheral pulses normal and equal in all extremities. ABDOMEN: Soft, without detectable tenderness. No sign of distention. No rebound or guarding, and no masses palpated. Bowel Sounds normal. MUSCULOSKELETAL: Good range of motion of all major joints. Extremities without clubbing, cyanosis or edema. NEUROLOGIC EXAM: Alert and oriented x 3. No focal sensory or strength deficits. Speech normal. Follows commands. PSYCHIATRIC: Mood normal. SKIN: No rash or lesions. - Constitutional Vitals: Temp Pulse Resp BP Pulse Ox 100.3 F H 88 18 136/92 95 06/11/17 08:21 06/11/17 10:00 06/11/17 08:21 06/11/17 08:21 06/11/17 10:00 General appearance: Present: no acute distress, other (frail) Results - Labs CBC & Chem 7: 06/11/17 06:25 06/11/17 06:25 Labs: Laboratory Last Values WBC 15.5 K/mm3 (4.5-11.0) H 06/11/17 06:25 RBC 3.37 M/mm3 (3.65-5.03) L 06/11/17 06:25 Hgb 9.4 gm/dl (11.8-15.2) L 06/11/17 06:25 Hct 29.2 % (35.5-45.6) L 06/11/17 06:25 MCV 87 fl (84-94) 06/11/17 06:25 MCH 28 pg (28-32) 06/11/17 06:25 MCHC 32 % (32-34) 06/11/17 06:25 RDW 14.6 % (13.2-15.2) 06/11/17 06:25 Plt Count 273 K/mm3 (140-440) 06/11/17 06:25 Lymph % (Auto) 5.9 % (13.4-35.0) L 06/11/17 06:25 [place] % (Auto) 11.4 % (0.0-7.3) H 06/11/17 06:25 Eos % (Auto) 0.3 % (0.0-4.3) 06/11/17 06:25 Baso % (Auto) 0.3 % (0.0-1.8) 06/11/17 06:25 Lymph # 0.9 K/mm3 (1.2-5.4) L 06/11/17 06:25 [place] # 1.8 K/mm3 (0.0-0.8) H 06/11/17 06:25 Eos # 0.0 K/mm3 (0.0-0.4) 06/11/17 06:25 Baso # 0.0 K/mm3 (0.0-0.1) 06/11/17 06:25 Seg Neutrophils % 82.1 % (40.0-70.0) H 06/11/17 06:25 Seg Neutrophils # 12.7 K/mm3 (1.8-7.7) H 06/11/17 06:25 PT 17.3 Sec. (12.2-14.9) H 06/05/17 20:58 INR 1.34 (0.87-1.13) H 06/05/17 20:58 APTT 35.0 Sec. (24.2-36.6) 06/05/17 20:58 D-Dimer 2377.87 ng/mlDDU (0-234) H 06/05/17 20:58 Sodium 135 mmol/L (137-145) L 06/11/17 06:25 Potassium 4.1 mmol/L (3.6-5.0) 06/11/17 06:25 Chloride 101.1 mmol/L (98-107) 06/11/17 06:25 Carbon Dioxide 17 mmol/L (22-30) L 06/11/17 06:25 Anion Gap 21 mmol/L 06/11/17 06:25 BUN 14 mg/dL (9-20) 06/11/17 06:25 Creatinine 1.2 mg/dL (0.8-1.5) 06/11/17 06:25 Estimated GFR > 60 ml/min 06/11/17 06:25 BUN/Creatinine Ratio 12 % 06/11/17 06:25 Glucose 107 mg/dL (75-100) H 06/11/17 06:25 POC Glucose 109 (70-105) H 06/11/17 11:40 Calcium 7.6 mg/dL (8.4-10.2) L 06/11/17 06:25 Total Bilirubin 0.50 mg/dL (0.1-1.2) 06/11/17 06:25 Direct Bilirubin 0.4 mg/dL (0-0.2) H 06/06/17 09:20 Indirect Bilirubin 0.4 mg/dL 06/06/17 09:20 AST 22 units/L (5-40) 06/11/17 06:25 ALT 11 units/L (7-56) 06/11/17 06:25 Alkaline Phosphatase 103 units/L (35-129) 06/11/17 06:25 Lactate Dehydrogenase 154 units/L (91-180) 06/06/17 09:20 Total Creatine Kinase 186 units/L (55-170) H 06/06/17 07:48 CK-MB (CK-2) 2.5 ng/mL (0.0-4.0) 06/06/17 07:48 CK-MB (CK-2) Rel Index 1.3 (0-4) 06/06/17 07:48 Troponin T 0.023 ng/mL (0.00-0.029) 06/06/17 07:48 C-Reactive Protein 25.80 mg/dL (0.00-1.30) H 06/07/17 13:19 NT-Pro-B Natriuret Pep 464.0 pg/mL (0-900) 06/05/17 20:10 Total Protein 6.2 g/dL (6.3-8.2) L 06/11/17 06:25 Albumin 2.1 g/dL (3.9-5) L 06/11/17 06:25 Albumin/Globulin Ratio 0.5 % 06/11/17 06:25 Triglycerides 80 mg/dL (2-149) 06/05/17 20:10 Cholesterol 105 mg/dL (50-199) 06/05/17 20:10 LDL Cholesterol Direct 42 mg/dL (50-130) L 06/05/17 20:10 HDL Cholesterol 47 mg/dL (40-59) 06/05/17 20:10 Cholesterol/HDL Ratio 2.23 % 06/05/17 20:10 Fluid Type Pleural 06/06/17 Unknown Fluid Color Yellow 06/06/17 Unknown Fluid Appearance Hazy 06/06/17 Unknown Fluid WBC 2950 /mm3 06/06/17 Unknown Fluid RBC 2262 /mm3 06/06/17 Unknown Fluid Seg Neutrophils 79.0 % 06/06/17 Unknown Fluid Lymphocytes 16.0 % 06/06/17 Unknown Fluid Reactive Lymphs 0 % 06/06/17 Unknown Fluid Monocytes 4.0 % 06/06/17 Unknown Fluid Eosinophils 1.0 % 06/06/17 Unknown Fluid Basophils 0 % 06/06/17 Unknown Fluid Glucose 60 mg/dL (40-70) 06/06/17 Unknown Fluid Total Protein 4.9 (15.0-45.0) L 06/06/17 Unknown Fluid LDH 521 06/06/17 Unknown Fluid Comment Diff performed 06/06/17 Unknown TB (QFT) Gold In Tube Negative (Negative) 02/02/18 11:25 TB Test (QFT) Nil 0.02 IU/mL 06/07/17 11:25 TB Test Mitogen - Nil >10.00 IU/mL 06/07/17 11:25 TB Test Antigen - Nil <0.00 IU/mL 06/07/17 11:25
[2017-06-11] MEDS: ZOSYN/NS 4.5GM/100ML 4.5 GM/100 ML VIAL IV SCH ×2 (18:07→21:25)
[2017-06-11] MEDS: ZYVOX PO SCH (18:08)
[2017-06-12] MEDS: ZOSYN/NS 4.5GM/100ML 4.5 GM/100 ML VIAL IV SCH ×2 (06:34→16:00)
--- NOTE | 2017-06-12 07:15 | Consultation ---
History of Present Illness Consult date: 06/12/17 Reason for consult: other (loculated right pleural effusion) - History of present illness History of present illness: 56 year old male with hx of Hep C, Dimentia (I am uncertain as to what type or cause),HTN, who presented with right sided chest pain and shortness of breath, he was evaluated and found to have a loculated right pleural effusion, s/p right thoracocentesis, cultures negative to date, sent for TB, fungus and bacaterial cultures, cytologies negative. The patient is a relatively poor historian and can not give a reliable hx of previous pneumonia, etc. He is on disability and has limited physical activity at home. He does not smoke, and has never been treated for his Hep C. He is resting comfortably in bed, he is not wearing oxygen and does not complain of shortness of breath. Past History Past Medical History: GERD, hyperlipidemia, other (neuropathy) Social history: single Family history: hypertension Medications and Allergies Allergies Allergy/AdvReac Type Severity Reaction Status Date / Time No Known Allergies Allergy Verified 02/11/14 04:07 Home Medications Medication Instructions Recorded Confirmed Last Taken Type Albuterol Sulfate [Ventolin HFA] 2 puff IH Q4H PRN 10/16/15 06/07/17 1 Day Ago History ~06/06/17 Gabapentin [Neurontin] 300 mg PO BID 10/16/15 06/07/17 1 Day Ago History ~06/06/17 Aspirin [Aspirin BABY CHEW TAB] 81 mg PO QDAY #30 tab.chew 11/22/15 06/07/17 1 Day Ago Rx ~06/06/17 AtorvaSTATin [Lipitor] 10 mg PO QHS #30 tablet 11/22/15 06/07/17 1 Day Ago Rx ~06/06/17 Carvedilol [Coreg] 6.25 mg PO BID #60 tablet 11/22/15 06/07/17 1 Day Ago Rx ~06/06/17 Famotidine [Pepcid] 20 mg PO BID #60 tablet 11/22/15 06/07/17 1 Day Ago Rx ~06/06/17 Active Meds: Active Medications Acetaminophen (Tylenol) 650 mg PO Q4H PRN PRN Reason: Pain MILD(1-3)/Fever >100.5/SOLIMAN Last Admin: 06/11/17 09:10 Dose: 650 mg Albuterol (Proventil) 2.5 mg IH Q3HRT PRN PRN Reason: Shortness Of Breath Atorvastatin Calcium (Lipitor) 10 mg PO QHS [facility] Last Admin: 06/11/17 21:25 Dose: 10 mg Bisacodyl (Dulcolax) 10 mg DE QDAY PRN PRN Reason: Constipation unrelieved by MOM Carvedilol (Coreg) 6.25 mg PO BID [facility] Last Admin: 06/11/17 21:26 Dose: 6.25 mg Dextrose (D50w (25gm) Syringe) 50 ml IV PRN PRN PRN Reason: Hypoglycemia Enoxaparin Sodium (Lovenox) 40 mg SUB-Q QDAY [facility] Last Admin: 06/11/17 09:11 Dose: 40 mg Famotidine (Pepcid) 20 mg PO BID [facility] Last Admin: 06/11/17 21:25 Dose: 20 mg Folic Acid (Folvite) 1 mg PO QDAY [facility] Last Admin: 06/11/17 09:12 Dose: 1 mg Gabapentin (Neurontin) 300 mg PO BID [facility] Last Admin: 06/11/17 21:25 Dose: 300 mg Sodium Chloride (Nacl 0.9% 1000 Ml) 1,000 mls @ 100 mls/hr IV DIRECT [facility] Last Admin: 06/11/17 21:24 Dose: 100 mls/hr Piperacillin Sod/Tazobactam Sod (Zosyn/Ns 4.5gm/100ml) 4.5 gm in 100 mls @ 200 mls/hr IV Q8HR [facility] PRN Reason: Protocol Last Admin: 06/12/17 06:34 Dose: 200 mls/hr Insulin Aspart (Novolog) 0 units SUB-Q ACHS [facility] PRN Reason: Protocol Last Admin: 06/11/17 22:19 Dose: Not Given Linezolid (Zyvox) 600 mg PO Q12HR [facility] PRN Reason: Protocol Last Admin: 06/11/17 18:08 Dose: 600 mg Magnesium Hydroxide (Milk Of Magnesia) 30 ml PO Q4H PRN PRN Reason: Constipation Multivitamins (Theragran Tab) 1 each PO QDAY [facility] Last Admin: 06/11/17 09:12 Dose: 1 each Ondansetron HCl (Zofran) 4 mg IV Q8H PRN PRN Reason: N/V unrelieved by Reglan Thiamine HCl (Vitamin B-1) 100 mg PO QDAY [facility] Last Admin: 06/11/17 09:13 Dose: 100 mg Review of Systems - Constitutional other (right sided chest pain which is improved.) - Psychiatric other (answers questions appropriately but very poor historian, he seems to have some understanding of his health issues but this is limited.) Exam Vital Signs Temp Pulse Resp BP Pulse Ox 99.7 F H 111 H 22 142/83 97 06/05/17 11:41 06/05/17 11:41 06/05/17 11:41 06/05/17 11:41 06/05/17 11:41 - General physical appearance Positive: no distress, chronically ill - Eyes Positive: PERRL, normal occular movement - ENT Positive: normal pinna, normal nares, normal mucosa, no hearing loss, no congestion, poor mcc - Neck Positive: no masses, no bruits, trachea midline, no venous distension - Respiratory Positive: other (decreased bs on right side) - Cardiovascular Rhythm: regular Heart Sounds: Present: S1 & S2. Absent: rub, click - Extremities Extremities: no ischemia, pulses symmetrical, No edema Peripheral Pulses: within normal limits - Breasts Breasts: normal - Abdomen Abdomen: Present: soft, bowel sounds normal. Absent: tender, distended Hernia: none - Neurologic Neurologic: alert and oriented to time, place and person, motor strength and sensation are grossly intact - Musculoskeletal normal gait - Psychiatric Psychiatric: appropriate mood/affect, intact judgment & insight Results - Labs 06/11/17 06:25 06/11/17 06:25 Abnormal lab results 06/06/17 06/11/17 06/11/17 Range/Units Unknown 06:25 11:40 Sodium 135 L (137-145) mmol/L Carbon Dioxide 17 L (22-30) mmol/L Glucose 107 H (75-100) mg/dL POC Glucose 109 H (70-105) Calcium 7.6 L (8.4-10.2) mg/dL Total Protein 6.2 L (6.3-8.2) g/dL Albumin 2.1 L (3.9-5) g/dL Fluid Total Protein 4.9 L (15.0-45.0) 06/11/17 06/11/17 Range/Units 18:17 21:55 Sodium (137-145) mmol/L Carbon Dioxide (22-30) mmol/L Glucose (75-100) mg/dL POC Glucose 139 H 131 H (70-105) Calcium (8.4-10.2) mg/dL Total Protein (6.3-8.2) g/dL Albumin (3.9-5) g/dL Fluid Total Protein (15.0-45.0) Diabetes panel 06/11/17 Range/Units 06:25 Sodium 135 L (137-145) mmol/L Potassium 4.1 (3.6-5.0) mmol/L Chloride 101.1 (98-107) mmol/L Carbon Dioxide 17 L (22-30) mmol/L BUN 14 (9-20) mg/dL Creatinine 1.2 (0.8-1.5) mg/dL Glucose 107 H (75-100) mg/dL Calcium 7.6 L (8.4-10.2) mg/dL AST 22 (5-40) units/L ALT 11 (7-56) units/L Alkaline Phosphatase 103 (35-129) units/L Total Protein 6.2 L (6.3-8.2) g/dL Albumin 2.1 L (3.9-5) g/dL Calcium panel 06/11/17 Range/Units 06:25 Calcium 7.6 L (8.4-10.2) mg/dL Albumin 2.1 L (3.9-5) g/dL Pituitary panel 06/11/17 Range/Units 06:25 Sodium 135 L (137-145) mmol/L Potassium 4.1 (3.6-5.0) mmol/L Chloride 101.1 (98-107) mmol/L Carbon Dioxide 17 L (22-30) mmol/L BUN 14 (9-20) mg/dL Creatinine 1.2 (0.8-1.5) mg/dL Glucose 107 H (75-100) mg/dL Calcium 7.6 L (8.4-10.2) mg/dL Adrenal panel 06/11/17 Range/Units 06:25 Sodium 135 L (137-145) mmol/L Potassium 4.1 (3.6-5.0) mmol/L Chloride 101.1 (98-107) mmol/L Carbon Dioxide 17 L (22-30) mmol/L BUN 14 (9-20) mg/dL Creatinine 1.2 (0.8-1.5) mg/dL Glucose 107 H (75-100) mg/dL Calcium 7.6 L (8.4-10.2) mg/dL Total Bilirubin 0.50 (0.1-1.2) mg/dL AST 22 (5-40) units/L ALT 11 (7-56) units/L Alkaline Phosphatase 103 (35-129) units/L Total Protein 6.2 L (6.3-8.2) g/dL Albumin 2.1 L (3.9-5) g/dL Assessment and Plan Complex case, loculated right pleural effusion,probable underlying right middle and lower lobe pneumonia. Chronic Hep C, Hx of HTN, Hx of dimentia/poor historian. All cultures negative to date, I doubt patient has TB but cultures pending.I recc [facility] to [facility] for [facility] dec[facility], the patient can be discharged on oral antibiotics and refered to [place], but only once Inf Dz and Pulmonary is comfortable he does not have TB.( I really do not think this patient has TB).
[2017-06-12] MEDS: NOVOLOG SUB-Q SCH ×3 (07:44→19:31)
[2017-06-12] MEDS: NACL 0.9% 1000 ML 1,000 ML IV SCH (08:01)
[2017-06-12 08:16] LABS: Basophils % (Auto) 0.2 % (0.0-1.8); Eosinophils # (Auto) 0.1 K/mm3 (0.0-0.4); Eosinophils % (Auto) 0.6 % (0.0-4.3); Hematocrit 29.3 % (35.5-45.6); Hemoglobin 9.7 gm/dl (11.8-15.2); Lymphocytes % (Auto) 7.1 % (13.4-35.0); Mean Corpuscular HGB Conc 33 % (32-34); Mean Corpuscular Hemoglobin 28 pg (28-32); Mean Corpuscular Volume 86 fl (84-94); Monocytes # (Auto) 1.5 K/mm3 (0.0-0.8); Monocytes % (Auto) 10.8 % (0.0-7.3); Platelet Count 286 K/mm3 (140-440)
[2017-06-12 08:46] LABS: Alanine Aminotransferase 14 units/L (7-56); Albumin 2.3 g/dL (3.9-5); BUN/Creatinine Ratio 10; Blood Urea Nitrogen 12 mg/dL (9-20); Calcium 7.7 mg/dL (8.4-10.2); Hemolysis Index 4
[2017-06-12] MEDS ORDERED: SODIUM BICARBONATE PO SCH (10:00)
[2017-06-12 10:04] VITALS: BP 115/76
--- NOTE | 2017-06-12 10:22 | Progress Note ---
Assessment and Plan Assessment: 1) Sepsis: Still fever and Leucocytosis. Etiology ?pneumonia 2) Recurrent arge para pneumonic pleural effusion vs malignancy ? -Chest CTA 06/05 showed small infiltrates to right upper lobe -repeat chest x-ray 06/06 showed large right pleural effusion with adjacent consolidation, s/p thoracentesis, fluids pending -CRP 25 -influenza A and B antigen negative 06/07 -blood culture 06/05 ngtd -TB quantiferon, negative -repeat blood cx 06/08/ ngtd -AFB blood cultures, negative -pleural fluid cx showed many polymorphonuclear cells and moderate mononuclear cells. No organism seen 3) Hypertension; stable 4) Diabetes; stable 5) Dementia Plan: -needs thoracic surgery eval for possible VATS in view of persistent fever and leucocytosis -continue zyvox po and zosyn iv day 2 -continue to monitor fever -pt is to be discharge by internal medicine to see CT surgery soon -pt educated about signs of sepsis and to return to ED\ -upon discharge will do doxycycline 100 mg BID, levaquin 750 mg po once until (abx needs to be adjusted upon lung cx VATS We will sign off Thank you Dr ziegler for your consultation, will follow up with you. Jay Roberts NP-C for Dr. Emilee Erazo MD Infectious Diseases Specialist [facility] M [phone] O [phone] Subjective Date of service: 06/12/17 Principal diagnosis: Pneumonia sepsis, Dm Interval history: I feel ok, still fever Microbiology: Blood cultures: 06/05 ngtd 06/08/ ngtd Respiratory culture influenza A and B antigen negative Current Antimicrobials: Levaquin 06/06 Previous Antimicrobials: Objective - Exam Narrative Exam: General appearance: Alert in NAD, conversant Eyes: anicteric sclerae, moist conjunctivae; no lid-lag; PERRLA HENT: Atraumatic; oropharynx c+shallow ulcers with mild thrush Lungs: karoline crackles, occasional SOB CV: RRR, no murmurs Abdomen: Soft, non-tender; +BS x 4 Extremities: No peripheral edema or extremity lymphadenopathy Skin: Normal temperature, turgor and texture; no rash, ulcers or subcutaneous nodules Psych: Appropriate affect, calm and cooperative Neuro: alert and oriented x 3. Moving all extermities Lines: No CVL / PICC - Constitutional Vitals: Vital Signs Temp Pulse Resp BP Pulse Ox 98.2 F 87 18 115/76 97 06/12/17 09:39 06/11/17 21:50 06/12/17 09:39 06/12/17 09:39 06/11/17 21:50 Temperature -Last 24 Hours Temperature 98.2 F Temperature 99.0 F Temperature 99.3 F - Labs CBC & Chem 7: 06/12/17 07:33 06/12/17 07:33 Labs: Abnormal lab results 06/06/17 06/11/17 06/11/17 Range/Units Unknown 11:40 18:17 WBC (4.5-11.0) K/mm3 RBC (3.65-5.03) M/mm3 Hgb (11.8-15.2) gm/dl Hct (35.5-45.6) % Lymph % (Auto) (13.4-35.0) % [place] % (Auto) (0.0-7.3) % Lymph # (1.2-5.4) K/mm3 [place] # (0.0-0.8) K/mm3 Seg Neutrophils % (40.0-70.0) % Seg Neutrophils # (1.8-7.7) K/mm3 Carbon Dioxide (22-30) mmol/L Glucose (75-100) mg/dL POC Glucose 109 H 139 H (70-105) Calcium (8.4-10.2) mg/dL Total Protein (6.3-8.2) g/dL Albumin (3.9-5) g/dL Fluid Total Protein 4.9 L (15.0-45.0) 06/11/17 06/12/17 06/12/17 Range/Units 21:55 07:33 07:33 WBC 13.8 H (4.5-11.0) K/mm3 RBC 3.40 L (3.65-5.03) M/mm3 Hgb 9.7 L (11.8-15.2) gm/dl Hct 29.3 L (35.5-45.6) % Lymph % (Auto) 7.1 L (13.4-35.0) % [place] % (Auto) 10.8 H (0.0-7.3) % Lymph # 1.0 L (1.2-5.4) K/mm3 [place] # 1.5 H (0.0-0.8) K/mm3 Seg Neutrophils % 81.3 H (40.0-70.0) % Seg Neutrophils # 11.2 H (1.8-7.7) K/mm3 Carbon Dioxide 17 L (22-30) mmol/L Glucose 102 H (75-100) mg/dL POC Glucose 131 H (70-105) Calcium 7.7 L (8.4-10.2) mg/dL Total Protein 6.2 L (6.3-8.2) g/dL Albumin 2.3 L (3.9-5) g/dL Fluid Total Protein (15.0-45.0)
[2017-06-12] MEDS: VITAMIN B-1 PO SCH (10:54)
[2017-06-12] MEDS: NEURONTIN PO SCH (10:54)
[2017-06-12] MEDS: PEPCID PO SCH (10:54)
[2017-06-12] MEDS: THERAGRAN Tab PO SCH (10:55)
[2017-06-12] MEDS: FOLVITE PO SCH (10:55)
[2017-06-12] MEDS: ZYVOX PO SCH (10:55)
[2017-06-12] MEDS: COREG PO SCH (10:56)
[2017-06-12] MEDS: LOVENOX SUB-Q SCH (10:56)
--- NOTE | 2017-06-12 11:32 | Progress Note ---
Assessment and Plan Right-sided pleural effusion. High LDH, low glucose and protein on chemistries with predominant PMN's on pleural fluid differential. No malignant cells seen on cytology. Consistent with complicated parapneumonic effusion, probably needing decortication, VATS procedure No fluid/clinical data to support diagnosis of TB related effusion at this time Pneumonia. Completing antibiotics Sepsis. Infectious disease is following Former smoker Recommendations Discussed with IMS- agree with recommendation to transfer to [place] thorax surgery for VATS evaluation. I will continued antibiotics in the meantime pending transfer, although patient appears to be avoiding and wants to be discharged, then go by clinic. Discussed recommendation for transfer with pt in detail. Subjective Principal diagnosis: Pneumonia sepsis, Dm Interval history: Reports no events overnight. No fever or night sweats. No cough or expectoration. No hemoptysis Objective Vital Signs - 12hr 06/12/17 06/12/17 09:39 10:56 Temperature 98.2 F Respiratory 18 Rate Blood Pressure 115/76 115/76 Constitutional: no acute distress, alert Eyes: non-icteric ENT: oropharynx moist Neck: supple, no JVD Effort: normal Ascultation: Right: diminished breath sounds, Left: clear Percussion: Right: dull Tactile fremitus: Right: diminished Cardiovascular: regular rate and rhythm Gastrointestinal: normoactive bowel sounds, soft, non-tender Extremities: no edema Neurologic: normal mental status, non-focal exam, pupils equal and round, CN II- XII normal Psychiatric: mood appropriate, affect normal CBC and BMP: 06/12/17 07:33 06/12/17 07:33 ABG, PT/INR, D-dimer: PT/INR, D-dimer PT 17.3 Sec. (12.2-14.9) H 06/05/17 20:58 INR 1.34 (0.87-1.13) H 06/05/17 20:58 D-Dimer 2377.87 ng/mlDDU (0-234) H 06/05/17 20:58 Abnormal lab findings: Abnormal Labs 06/05/17 06/05/17 06/05/17 12:33 12:33 20:10 WBC 15.8 H RBC Hgb Hct Lymph % (Auto) 7.1 L [place] % (Auto) 10.4 H Lymph # 1.1 L [place] # 1.6 H Seg Neutrophils % 82.1 H Seg Neutrophils # 12.9 H PT INR D-Dimer Sodium 134 L Carbon Dioxide 21 L BUN 21 H Creatinine Glucose 133 H POC Glucose Calcium Direct Bilirubin Total Creatine Kinase Troponin T 0.041 H C-Reactive Protein Total Protein Albumin LDL Cholesterol Direct 42 L Fluid Total Protein 06/05/17 06/06/17 06/06/17 20:58 02:23 03:19 WBC RBC Hgb Hct Lymph % (Auto) [place] % (Auto) Lymph # [place] # Seg Neutrophils % Seg Neutrophils # PT 17.3 H INR 1.34 H D-Dimer 2377.87 H Sodium Carbon Dioxide BUN Creatinine Glucose POC Glucose 127 H Calcium Direct Bilirubin Total Creatine Kinase Troponin T 0.031 H D C-Reactive Protein Total Protein Albumin LDL Cholesterol Direct Fluid Total Protein 06/06/17 06/06/17 06/06/17 07:48 07:59 09:20 WBC 15.7 H RBC Hgb 10.6 L Hct 32.6 L Lymph % (Auto) 5.2 L [place] % (Auto) 9.8 H Lymph # 0.8 L [place] # 1.5 H Seg Neutrophils % 84.8 H Seg Neutrophils # 13.3 H PT INR D-Dimer Sodium Carbon Dioxide BUN Creatinine Glucose POC Glucose 150 H Calcium Direct Bilirubin Total Creatine Kinase 186 H Troponin T C-Reactive Protein Total Protein Albumin LDL Cholesterol Direct Fluid Total Protein 06/06/17 06/06/17 06/06/17 09:20 09:20 12:17 WBC RBC Hgb Hct Lymph % (Auto) [place] % (Auto) Lymph # [place] # Seg Neutrophils % Seg Neutrophils # PT INR D-Dimer Sodium 135 L Carbon Dioxide 19 L BUN 22 H Creatinine Glucose 161 H POC Glucose 180 H Calcium 8.3 L Direct Bilirubin 0.4 H Total Creatine Kinase Troponin T C-Reactive Protein Total Protein Albumin 2.7 L LDL Cholesterol Direct Fluid Total Protein 06/06/17 06/06/17 06/06/17 15:53 21:18 Unknown WBC RBC Hgb Hct Lymph % (Auto) [place] % (Auto) Lymph # [place] # Seg Neutrophils % Seg Neutrophils # PT INR D-Dimer Sodium Carbon Dioxide BUN Creatinine Glucose POC Glucose 144 H 163 H Calcium Direct Bilirubin Total Creatine Kinase Troponin T C-Reactive Protein Total Protein Albumin LDL Cholesterol Direct Fluid Total Protein 4.9 L 06/07/17 06/07/17 06/07/17 05:42 05:42 07:56 WBC 13.0 H RBC 3.45 L Hgb 9.9 L Hct 30.4 L Lymph % (Auto) 11.0 L [place] % (Auto) 12.8 H Lymph # [place] # 1.7 H Seg Neutrophils % 75.6 H Seg Neutrophils # 9.8 H PT INR D-Dimer Sodium 135 L Carbon Dioxide 19 L BUN 25 H Creatinine 1.7 H Glucose 141 H POC Glucose 153 H Calcium 8.3 L Direct Bilirubin Total Creatine Kinase Troponin T C-Reactive Protein Total Protein Albumin LDL Cholesterol Direct Fluid Total Protein 06/07/17 06/07/17 06/07/17 11:52 13:19 15:35 WBC RBC Hgb Hct Lymph % (Auto) [place] % (Auto) Lymph # [place] # Seg Neutrophils % Seg Neutrophils # PT INR D-Dimer Sodium Carbon Dioxide BUN Creatinine Glucose POC Glucose 185 H 133 H Calcium Direct Bilirubin Total Creatine Kinase Troponin T C-Reactive Protein 25.80 H Total Protein Albumin LDL Cholesterol Direct Fluid Total Protein 06/07/17 06/08/17 06/08/17 21:23 05:22 06:27 WBC 11.9 H RBC 3.36 L Hgb 9.7 L Hct 29.2 L Lymph % (Auto) 7.5 L [place] % (Auto) 10.5 H Lymph # 0.9 L [place] # 1.3 H Seg Neutrophils % 81.5 H Seg Neutrophils # 9.7 H PT INR D-Dimer Sodium Carbon Dioxide BUN Creatinine Glucose POC Glucose 163 H 127 H Calcium Direct Bilirubin Total Creatine Kinase Troponin T C-Reactive Protein Total Protein Albumin LDL Cholesterol Direct Fluid Total Protein 06/08/17 06/08/17 06/08/17 06:27 11:29 15:38 WBC RBC Hgb Hct Lymph % (Auto) [place] % (Auto) Lymph # [place] # Seg Neutrophils % Seg Neutrophils # PT INR D-Dimer Sodium 135 L Carbon Dioxide 18 L BUN 25 H Creatinine Glucose 145 H POC Glucose 187 H 112 H Calcium 8.1 L Direct Bilirubin Total Creatine Kinase Troponin T C-Reactive Protein Total Protein Albumin 2.5 L LDL Cholesterol Direct Fluid Total Protein 06/08/17 06/09/17 06/09/17 22:10 06:23 11:44 WBC RBC Hgb Hct Lymph % (Auto) [place] % (Auto) Lymph # [place] # Seg Neutrophils % Seg Neutrophils # PT INR D-Dimer Sodium Carbon Dioxide BUN Creatinine Glucose POC Glucose 157 H 151 H 141 H Calcium Direct Bilirubin Total Creatine Kinase Troponin T C-Reactive Protein Total Protein Albumin LDL Cholesterol Direct Fluid Total Protein 06/09/17 06/09/17 06/10/17 16:37 21:19 05:28 WBC RBC Hgb Hct Lymph % (Auto) [place] % (Auto) Lymph # [place] # Seg Neutrophils % Seg Neutrophils # PT INR D-Dimer Sodium Carbon Dioxide BUN Creatinine Glucose POC Glucose 138 H 153 H 118 H Calcium Direct Bilirubin Total Creatine Kinase Troponin T C-Reactive Protein Total Protein Albumin LDL Cholesterol Direct Fluid Total Protein 06/10/17 06/10/17 06/11/17 11:55 16:13 06:25 WBC 15.5 H RBC 3.37 L Hgb 9.4 L Hct 29.2 L Lymph % (Auto) 5.9 L [place] % (Auto) 11.4 H Lymph # 0.9 L [place] # 1.8 H Seg Neutrophils % 82.1 H Seg Neutrophils # 12.7 H PT INR D-Dimer Sodium Carbon Dioxide BUN Creatinine Glucose POC Glucose 142 H 151 H Calcium Direct Bilirubin Total Creatine Kinase Troponin T C-Reactive Protein Total Protein Albumin LDL Cholesterol Direct Fluid Total Protein 06/11/17 06/11/17 06/11/17 06:25 11:40 18:17 WBC RBC Hgb Hct Lymph % (Auto) [place] % (Auto) Lymph # [place] # Seg Neutrophils % Seg Neutrophils # PT INR D-Dimer Sodium 135 L Carbon Dioxide 17 L BUN Creatinine Glucose 107 H POC Glucose 109 H 139 H Calcium 7.6 L Direct Bilirubin Total Creatine Kinase Troponin T C-Reactive Protein Total Protein 6.2 L Albumin 2.1 L LDL Cholesterol Direct Fluid Total Protein 06/11/17 06/12/17 06/12/17 21:55 07:33 07:33 WBC 13.8 H RBC 3.40 L Hgb 9.7 L Hct 29.3 L Lymph % (Auto) 7.1 L [place] % (Auto) 10.8 H Lymph # 1.0 L [place] # 1.5 H Seg Neutrophils % 81.3 H Seg Neutrophils # 11.2 H PT INR D-Dimer Sodium Carbon Dioxide 17 L BUN Creatinine Glucose 102 H POC Glucose 131 H Calcium 7.7 L Direct Bilirubin Total Creatine Kinase Troponin T C-Reactive Protein Total Protein 6.2 L Albumin 2.3 L LDL Cholesterol Direct Fluid Total Protein
--- NOTE | 2017-06-12 13:12 | Discharge Summary ---
Providers - Providers Date of Admission: 06/05/17 23:33 Attending physician: CHAUNCEY GALVAN MD 06/06/17 01:35 Consult to Physician [CONS] Routine Consulting Provider: OPAL TRIPP Reason For Exam: loculated pleural effudion Notified:: pl call 06/06/17 09:12 Consult to Physician [CONS] Routine Consulting Provider: MARYBEL BARNES Reason For Exam: PNEUMONIA Place consult to:: Dr. Hartmann Notified:: Cynthia PAYTON Phone number called:: Was contact made?: Yes If yes, spoke with:: Justin service Time called:: 09:46 06/11/17 11:52 Consult to Physician [CONS] Routine Consulting Provider: MAURIZIO MARES Reason For Exam: loculated pleural effusion Place consult to:: DR. Mares Notified:: office Phone number called:: [phone] Was contact made?: Yes If yes, spoke with:: Ce Time called:: 12:44 Comment:: Latrice Notified Primary care physician: FAMILY SERVICES SPECIALIST Hospitalization Reason for admission: sepsis Condition: Stable Hospital course: 56-year-old man with a history of hepatitis C, hypertension, diabetes and dementia was brought to the emergency room for evaluation of right rib pain, fever, cough productive of green phlegm. Patient was noted to have loculated pleural effusion which could not be drained and was recommended to obtain VATS evaluation at [facility] but the patient refused to be transferred. He was treated with IV antibiotics, and discharged on oral antibiotics with strong recommendation to follow at [place]. Patient was evaluated By ID, pulmonary and also Cardiothoracic surgery, TB was ruled out with Quantiferon gold. Discharge diagnosis -Sepsis -pneumonia-aspiration -Large loculated pleural effusion -PARAPNEUMONIC INFECTION -Chronically elevated Troponin -Moderate to servere protein calorie malnutrition --Hypertension -Diabetes -Dementia Disposition: TO HOME OR SELFCARE Time spent for discharge: 35 mins Core Measure Documentation - Palliative Care Palliative Care/ Comfort Measures: Not Applicable - Core Measures Any of the following diagnoses?: none - VTE Discharge Requirements Deep Vein Thrombosis/Pulmonary Embolism Present on Admission: No Exam - Physical Exam Narrative exam: VITAL SIGNS: Reviewed. GENERAL: The patient appeared chronically ill appearing. Vital signs as documented. HEAD: No signs of head trauma. EYES: Pupils are equal. Extraocular motions intact. EARS: Hearing grossly intact. MOUTH: Oropharynx is normal. NECK: No adenopathy, no JVD. CHEST: Chest with Diminished breath sounds right. No wheezes, rales, or rhonchi. CARDIAC: Regular rate and rhythm. S1 and S2, without murmurs, gallops, or rubs. VASCULAR: No Edema. Peripheral pulses normal and equal in all extremities. ABDOMEN: Soft, without detectable tenderness. No sign of distention. No rebound or guarding, and no masses palpated. Bowel Sounds normal. MUSCULOSKELETAL: Good range of motion of all major joints. Extremities without clubbing, cyanosis or edema. NEUROLOGIC EXAM: Alert and oriented x 3. No focal sensory or strength deficits. Speech normal. Follows commands. PSYCHIATRIC: Mood normal. SKIN: No rash or lesions. - Constitutional Vitals: Temp Pulse Resp BP Pulse Ox 98.2 F 87 18 115/76 96 06/12/17 09:39 06/11/17 21:50 06/12/17 09:39 06/12/17 10:56 06/12/17 12:01 Plan Activity: advance as tolerated, fall precautions Diet: diabetic Special Instructions: record daily weights, record daily BP diary, record blood sugar diary Additional Instructions: must follow at [place] for cardiothoracic service NICKO. Patient understands importance and must visit within 1-2 days Follow up with: PRIMARY CARE, [Primary Care Provider] - 3-5 Days Prescriptions: Doxycycline [Vibramycin CAP] 100 mg PO Q12HR #14 capsule Levofloxacin [Levaquin] 750 mg PO QDAY #14 tablet
--- NOTE | 2017-06-13 08:25 | Ultrasound Report ---
Right thoracentesis: Imaging of the chest in the upright position but ultrasound demonstrated a loculated collections of fluid throughout right chest. An optimum approach site was marked on the skin. The skin was cleansed and draped. 1% lidocaine used for local anesthesia. A small skin pete was made through which a 5 [place] Yueh catheter was placed. 120 cc of straw-colored fluid was successfully removed in 2 separates ranges for laboratory evaluation. I was only able to remove a small amount of additional fluid at this site. No patient complications encountered.
== END 2017-06-12 18:20 | disposition home or self-care (01) | DRG 871 ==
LOC: ED 11:37 → 4A 23:33 → 3A 06-07 19:07
PROVIDERS: ADMIT Internal Medicine; ATTEND Internal Medicine
PROC: 0W993ZZ Drainage of Right Pleural Cavity, Percutaneous Approach (ICD-10-PCS; principal; 2017-06-06)
DX: A41.9 Sepsis, unspecified organism (principal); J69.0 Pneumonitis due to inhalation of food and vomit; E43 Unspecified severe protein-calorie malnutrition; I10 Essential (primary) hypertension; F03.90 Unspecified dementia, unspecified severity, without behavioral disturbance, psychotic disturbance, mood disturbance, and anxiety; J90 Pleural effusion, not elsewhere classified; B19.20 Unspecified viral hepatitis C without hepatic coma; K21.9 Gastro-esophageal reflux disease without esophagitis; E11.40 Type 2 diabetes mellitus with diabetic neuropathy, unspecified; Z68.22 Body mass index [BMI] 22.0-22.9, adult; Z79.82 Long term (current) use of aspirin; Z79.899 Other long term (current) drug therapy; Z82.49 Family history of ischemic heart disease and other diseases of the circulatory system; Z79.4 Long term (current) use of insulin
CPT/HCPCS: 32555; 36415; 71045; 71046; 71275; 80048; 80053; 80061; 80074; 82164; 82550; 82553; 82947; 82962; 83605; 83615; 83880; 84160; 84484; 85025; 85379; 85610; 85730; 86140; 87040; 87102; 87116; 87400; 88112; 88305; 89051; 93005; 93010; 93306; 94760; 96374; 96375; 99285; A9270-GY; J1650; J1815; J1956; J2543; J7030; J7050; Q9967